=== PATIENT | male | born 1955 | race African-American/Black ===

== ENCOUNTER 2017-03-13 10:29 | Inpatient (IN) | payer OTHER ==
[2017-03-13] MEDS ORDERED: Aspirin Low Dose CHEW TAB* 81 MG PO ONE (10:46)
[2017-03-13] MEDS ORDERED: NS 0.9% 1000 ML* 1,000 ML IV SCH (11:00)
--- NOTE | 2017-03-13 11:05 | RAD ---
HISTORY: Chest pain COMPARISONS: None VIEWS:1: Single frontal portable view of the chest at 10:52 AM FINDINGS: LINES AND TUBES: None. CARDIOMEDIASTINAL SILHOUETTE: The cardiomediastinal silhouette is normal for portable technique. PLEURA: The costophrenic angles are sharp. No pleural abnormalities are noted. LUNG PARENCHYMA: The lungs are clear. ABDOMEN: The upper abdomen is clear. There is no subphrenic gas. BONES AND SOFT TISSUES: No bone or soft tissue abnormalities are noted. IMPRESSION: NO ACTIVE CARDIOPULMONARY DISEASE.
[2017-03-13 11:15] LABS: Hematocrit 42 % (42-52); Hemoglobin 13.4 g/dl (14.0-18.0); Mean Corpuscular HGB Conc 32 g/dl (31-36); Mean Corpuscular Hemoglobin 26 pg (27-31); Mean Corpuscular Volume 83 fL (80-94); Mean Platelet Volume 8 um3 (7.4-10.4); Red Cell Distribution Width 14 % (10.5-15); White Blood Count 6.1 10^3/ul (3.5-10.8)
[2017-03-13 11:32] LABS: Albumin 4.1 g/dL (3.2-5.2); BUN/Creatinine Ratio 10.4 (8-20); C Reactive Protein 20.36 mg/L (< 5.00); Calcium 9.6 mg/dL (8.6-10.3); EGFR African American 103.1 (>60); EGFR Non-African American 80.2 (>60); Globulin 4.2 g/dL (2-4); Potassium 4.3 mmol/L (3.5-5.0); Total Bilirubin 0.5 mg/dL (0.2-1.0); Total Protein 8.3 g/dL (6.4-8.9)
[2017-03-13] MEDS ORDERED: Nitroglycerin TAB 0.4 MG* 0.4 MG TAB SL ONE (11:35)
[2017-03-13 11:38] LABS: Troponin I 0.47 ng/mL (<0.04)
[2017-03-13] MEDS ORDERED: Nitroglycerin TAB 0.4 MG* 0.4 MG TAB ONE (11:54)
[2017-03-13] MEDS ORDERED: Nitroglycerin 2% OINT* 1 GM PAK ONE (11:54)
[2017-03-13] MEDS: Nitroglycerin 2% OINT* 1 GM PAK TOPICAL SCH ×2 (11:56→20:18)
[2017-03-13 11:59] LABS: TSH (Thyroid Stimulating Horm) 1.26 mcIU/mL (0.34-5.60)
[2017-03-13] MEDS ORDERED: Ondansetron INJ* 2 MG/ML VIAL IV PRN (12:10)
[2017-03-13] MEDS ORDERED: Atorvastatin* 80 MG TAB PO SCH (12:11)
[2017-03-13] MEDS ORDERED: Metoprolol Tartrate IV* 1 MG/ML 5 ML VIAL ONE (12:29)
[2017-03-13] MEDS ORDERED: Atorvastatin* 80 MG TAB ONE (12:29)
[2017-03-13] MEDS ORDERED: Heparin DRIP 25,000 UNITS(*) 25,000 UNITS/500 ML BAG ONE (12:30)
[2017-03-13] MEDS ORDERED: Heparin VIAL(*) 5000 UNITS/ML VIAL (FIVE THOUSAND) ONE (12:31)
[2017-03-13] MEDS: Heparin DRIP 25,000 UNITS(*) 25,000 UNITS/500 ML BAG IVPB SCH (12:32)
[2017-03-13] MEDS: Atorvastatin* 80 MG TAB PO ONE ×2 (12:44)
[2017-03-13] MEDS ORDERED: Metoprolol Tartrate IV* 1 MG/ML 5 ML VIAL IV SCH (13:00)
[2017-03-13] MEDS ORDERED: Heparin VIAL(*) 5000 UNITS/ML VIAL (FIVE THOUSAND) IV SCH (13:00)
--- NOTE | 2017-03-13 14:35 | ED ---
Jany Sweet Auryana, scribed for Danny Barber MD on 03/13/17 at 1132 . HPI Chest Pain - HPI Summary HPI Summary: 61 year old male presents with chest pain starting this morning while walking for 3-5 minutes. He reports that the pain was located in the mid sternum and radiated into the left arm with tightness. He reports that it initially started as a burning pain. With exertion, the pain is an 8/10, and is resolved with rest. He reports that he still has tightness in the shoulders and arms (mostly L ) but denies any chest pain now. He denies any edema or calf pain. He reports that he has had one similar episode with activity about 6 weeks ago - states pain radiated to the back , shoulders, and bilateral arms- subsided with rest. No prior stress tests. PMHx is significant for HTN (no medication). No PMHx of abdominal surgeries. - History of Current Complaint Chief Complaint: EDChestPainROMI Time Seen by Provider: 03/13/17 11:25 Hx Obtained From: Patient Onset/Duration: Started Hours Ago - this morning while walking, Resolved - resolved with rest Timing: Lasting Minutes - 3-5 minutes Initial Severity: Mild Current Severity: Mild Pain Intensity: 2 - reports no CP on ED physician visit Pain Scale Used: 0-10 Numeric Chest Pain Location: Diffuse, Mid Sternal Chest Pain Radiates: Yes Chest Pain Radiates To:: Shoulder - tightness, Arm - tightness Character: Pressure/Squeezing, Tightness Aggravating Factor(s): Exertion - brings on pain Alleviating Factor(s): Rest Associated Signs and Symptoms: Positive: Chest Pain - denies any now, Other: - tightness in arms and shoulder Related History: Similar Episode/Dx as: - YES - SEE HPI - Allergy/Home Medications Allergies/Adverse Reactions: Allergies Allergy/AdvReac Type Severity Reaction Status Date / Time Atenolol [From Tenormin] Allergy Bleeding Verified 03/13/17 11:15 PMH/Surg Hx/FS Hx/Imm Hx Cardiovascular History: Reports: Hx Hypertension - untreated GI History: Reports: Hx Gastrointestinal Bleed Infectious Disease History: No Infectious Disease History: Denies: Traveled Outside the [place] in Last 30 Days - Family History Known Family History: Positive: Hypertension, Diabetes - Social History Occupation: Employed Full-time Lives: With Family - SIGNIFICANT OTHER Alcohol Use: history of past ETOH abuse per history & physical in 2006 Hx Substance Use: No Substance Use Type: Reports: None Hx Tobacco Use: No Smoking Status (MU): Never Smoked Tobacco Review of Systems Constitutional: Negative Negative: Fever Eyes: Negative ENT: Negative Cardiovascular: Negative Negative: Chest Pain - none now Respiratory: Negative Gastrointestinal: Negative Genitourinary: Negative Positive: Other - tightness in the shoulers and bilateral arms (L>R). Negative : Edema Skin: Negative Neurological: Negative Psychological: Normal All Other Systems Reviewed And Are Negative: Yes Physical Exam Triage Information Reviewed: Yes Vital Signs On Initial Exam: Initial Vitals Temp Pulse Resp BP Pulse Ox 97.8 F 114 20 180/98 100 03/13/17 10:30 03/13/17 10:30 03/13/17 10:30 03/13/17 10:30 03/13/17 10:30 Vital Signs Reviewed: Yes Appearance: Positive: Well-Appearing, No Pain Distress Skin: Positive: Warm, Skin Color Reflects Adequate Perfusion, Dry Head/Face: Positive: Normal Head/Face Inspection Eyes: Positive: EOMI, ALEX ENT: Positive: Normal ENT inspection Neck: Positive: Supple, Nontender Respiratory/Lung Sounds: Positive: Clear to Auscultation, Breath Sounds Present Cardiovascular: Positive: RRR. Negative: Leg Edema Left, Leg Edema Right Abdomen Description: Positive: Nontender, Soft Bowel Sounds: Positive: Present Musculoskeletal: Positive: Normal, Strength/ROM Intact. Negative: Edema Left, Edema Right Neurological: Positive: Normal, Sensory/Motor Intact, Alert, Oriented to Person Place, Time Psychiatric: Positive: Normal, Affect/Mood Appropriate Diagnostics - Vital Signs Vital Signs Temp Pulse Resp BP Pulse Ox 03/13/17 10:54 94 10 98 03/13/17 10:51 98.4 F 103 19 227/143 100 03/13/17 10:30 97.8 F 114 20 180/98 100 - Laboratory Lab Results: Lab Results 03/13/17 03/13/17 03/13/17 Range/Units 11:05 11:05 11:05 WBC 6.1 (3.5-10.8) 10^3/ul RBC 5.10 (4.0-5.4) 10^6/ul Hgb 13.4 L (14.0-18.0) g/dl Hct 42 (42-52) % MCV 83 (80-94) fL MCH 26 L (27-31) pg MCHC 32 (31-36) g/dl RDW 14 (10.5-15) % Plt Count 265 (150-450) 10^3/ul MPV 8 (7.4-10.4) um3 Neut % (Auto) 50.3 (38-83) % Lymph % (Auto) 38.6 (25-47) % [place] % (Auto) 9.4 H (1-9) % Eos % (Auto) 0.6 (0-6) % Baso % (Auto) 1.1 (0-2) % Absolute Neuts (auto) 3.0 (1.5-7.7) 10^3/ul Absolute Lymphs (auto) 2.3 (1.0-4.8) 10^3/ul Absolute Monos (auto) 0.6 (0-0.8) 10^3/ul Absolute Eos (auto) 0 (0-0.6) 10^3/ul Absolute Basos (auto) 0.1 (0-0.2) 10^3/ul Absolute Nucleated RBC 0.01 10^3/ul Nucleated RBC % 0.2 INR (Anticoag Therapy) 1.02 (0.89-1.11) APTT 30.1 (26.0-36.3) seconds D-Dimer, Quantitative < 200 (Less Than 230) ng/mL Sodium 133 (133-145) mmol/L Potassium 4.3 (3.5-5.0) mmol/L Chloride 100 L (101-111) mmol/L Carbon Dioxide 26 (22-32) mmol/L Anion Gap 7 (2-11) mmol/L BUN 10 (6-24) mg/dL Creatinine 0.96 (0.67-1.17) mg/dL Est GFR ( Amer) 103.1 (>60) Est GFR (Non-Af Amer) 80.2 (>60) BUN/Creatinine Ratio 10.4 (8-20) Glucose 95 (70-100) mg/dL Lactic Acid (0.5-2.0) mmol/L Calcium 9.6 (8.6-10.3) mg/dL Magnesium 2.0 (1.9-2.7) mg/dL Total Bilirubin 0.50 (0.2-1.0) mg/dL AST 18 (13-39) U/L ALT 12 (7-52) U/L Alkaline Phosphatase 95 (34-104) U/L Total Creatine Kinase 98 (10-223) U/L CK-MB (CK-2) 3.1 (0.6-6.3) ng/mL Troponin I 0.47 H* (<0.04) ng/mL C-Reactive Protein 20.36 H (< 5.00) mg/L B-Natriuretic Peptide ( - 100) pg/mL Total Protein 8.3 (6.4-8.9) g/dL Albumin 4.1 (3.2-5.2) g/dL Globulin 4.2 H (2-4) g/dL Albumin/Globulin Ratio 1.0 (1-3) Lipase 13 (11.0-82.0) U/L TSH 1.26 (0.34-5.60) mcIU/mL 03/13/17 03/13/17 Range/Units 11:05 11:05 WBC (3.5-10.8) 10^3/ul RBC (4.0-5.4) 10^6/ul Hgb (14.0-18.0) g/dl Hct (42-52) % MCV (80-94) fL MCH (27-31) pg MCHC (31-36) g/dl RDW (10.5-15) % Plt Count (150-450) 10^3/ul MPV (7.4-10.4) um3 Neut % (Auto) (38-83) % Lymph % (Auto) (25-47) % [place] % (Auto) (1-9) % Eos % (Auto) (0-6) % Baso % (Auto) (0-2) % Absolute Neuts (auto) (1.5-7.7) 10^3/ul Absolute Lymphs (auto) (1.0-4.8) 10^3/ul Absolute Monos (auto) (0-0.8) 10^3/ul Absolute Eos (auto) (0-0.6) 10^3/ul Absolute Basos (auto) (0-0.2) 10^3/ul Absolute Nucleated RBC 10^3/ul Nucleated RBC % INR (Anticoag Therapy) (0.89-1.11) APTT (26.0-36.3) seconds D-Dimer, Quantitative (Less Than 230) ng/mL Sodium (133-145) mmol/L Potassium (3.5-5.0) mmol/L Chloride (101-111) mmol/L Carbon Dioxide (22-32) mmol/L Anion Gap (2-11) mmol/L BUN (6-24) mg/dL Creatinine (0.67-1.17) mg/dL Est GFR ( Amer) (>60) Est GFR (Non-Af Amer) (>60) BUN/Creatinine Ratio (8-20) Glucose (70-100) mg/dL Lactic Acid 1.6 (0.5-2.0) mmol/L Calcium (8.6-10.3) mg/dL Magnesium (1.9-2.7) mg/dL Total Bilirubin (0.2-1.0) mg/dL AST (13-39) U/L ALT (7-52) U/L Alkaline Phosphatase (34-104) U/L Total Creatine Kinase (10-223) U/L CK-MB (CK-2) (0.6-6.3) ng/mL Troponin I (<0.04) ng/mL C-Reactive Protein (< 5.00) mg/L B-Natriuretic Peptide 54 ( - 100) pg/mL Total Protein (6.4-8.9) g/dL Albumin (3.2-5.2) g/dL Globulin (2-4) g/dL Albumin/Globulin Ratio (1-3) Lipase (11.0-82.0) U/L TSH (0.34-5.60) mcIU/mL Result Diagrams: 03/13/17 11:05 03/13/17 11:05 Lab Statement: Any lab studies that have been ordered have been reviewed, and results considered in the medical decision making process. - Radiology CXR Xray Interpretation: No Acute Changes Radiology Interpretation Completed By: Radiologist - EKG 10:44 EKG Interpretation: NSR@96bpm,flipped T (V4,V5,V6);flat T(inferior lead);Q waves (III & aVf) 10:45 EKG Comparison: No Significant Change - from 10:44 EKG Chest Pain Course/Dx - Course Course Of Treatment: CRITICAL CARE TIME LESS THAN 30 MINUTES Assessment/Plan: DISCUSSED RESULTS WITH PATIENT//HOSPITALIST. ADMIT HOSPITALIST STABLE. CARDIOLOGY SAW PATIENT IN ED. - Diagnoses Provider Diagnoses: Chest pain, Elevated troponin, Hypertension - Provider Notifications Discussed Care Of Patient With: Dr. Muñoz Time Discussed With Above Provider: 11:32 - agrees to admit Discharge - Discharge Plan Condition: Stable Disposition: ADMITTED TO Health system documentation as recorded by the Jany jimenez Auryana accurately reflects the service I personally performed and the decisions made by me, Danny Barber MD.
--- NOTE | 2017-03-13 16:21 | ECHO ---
Patient: TEN HINOJOSA [facility] Rec#: [id number] : 1955 Date: 03/13/2017 Age: 61y Height: 182.9 cm / 72.0 in Weight: 127 kg / 279.9 lbs Sex: M BSA: 2.5 Room#: ICU 3 Admit Date#: 03/13/2017 Type: Inpatient Referring: Luis M Mcdonald NP Reading: Wayne Perales MD [employer]: Maggie Tariq RN RDCS Transthoracic Echocardiogram Indication: NSTEMI BP: 151/95 HR: 87 Rhythm: NSR Findings History: HTN, obesity, former smoker Technical Comments: The study is technically limited due to patient body habitus. The study is technically limited due to the patient's smoking history. Completed at 1540. Left Ventricle: The left ventricular chamber size is mildly dilated. There is increased basal septal hypertrophy noted without evidence of an increased gradient across the left ventricular outflow tract. There are multiple regional wall motion abnormalities. There is moderately decreased left ventricular systolic function. The estimated ejection fraction is 30-35%. There is an E to A reversal in the mitral valve flow pattern suggestive of diastolic dysfunction. The mid anteroseptal, mid anterior, apical anterior, and apical inferior wall segments are hypokinetic (score 2). The apical septal wall segment is akinetic (score 3). Overall wallmotion score index is 2.20 Left Atrium: The left atrial chamber size is normal. Right Ventricle: The right ventricular cavity size is normal. The right ventricular global systolic function is normal. Right Atrium: The right atrial cavity size is normal. Aortic Valve: The aortic valve is trileaflet. The aortic valve leaflets are mildly thickened. There is mild aortic regurgitation. There is no evidence of aortic stenosis. Mitral Valve: The mitral valve leaflets are mildly thickened. There is trace to mild mitral regurgitation. There is no evidence of mitral stenosis. Tricuspid Valve: The tricuspid valve leaflets are normal. There is trace to mild tricuspid regurgitation. There is evidence of mild pulmonary hypertension. There is no tricuspid stenosis. Pulmonic Valve: The pulmonic valve appears normal. There is mild pulmonic regurgitation. There is no pulmonic stenosis. Pericardium: There is no significant pericardial effusion. A pericardial fat pad is visualized. Aorta: There is moderate dilatation of the ascending aorta.4.4 cm There is mild dilatation of the aortic arch. There is mild dilatation of the aortic root. Pulmonary Artery: The main pulmonary artery appears normal. Venous: The inferior vena cava appears normal in size. There is a greater than 50% respiratory change in the inferior vena cava dimension. Summary: There was not any prior study for comparison. Conclusions There is moderately decreased left ventricular systolic function. The estimated ejection fraction is 30-35%. The mid anteroseptal, mid anterior, apical anterior, and apical inferior wall segments are hypokinetic (score 2). The apical septal wall segment is akinetic (score 3). The right ventricular global systolic function is normal. The aortic valve leaflets are mildly thickened. There is mild aortic regurgitation. There is no evidence of aortic stenosis. There is trace to mild mitral regurgitation. There is trace to mild tricuspid regurgitation. There is no significant pericardial effusion. There is moderate dilatation of the ascending aorta.4.4 cm There was not any prior study for comparison. Measurements Name Value Normal Range RVIDd (AP) 2D 2.6 cm (0.9 - 2.6) RVDdMajor (2D) 4.1 cm (2.2 - 4.4) RAd ISD 4CH 4.6 cm (3.4 - 4.9) RA (A4C)W 4 cm (2.9 - 4.6) IVSd (2D) 1 cm (0.6 - 1) LVPWd (2D) 1 cm (0.6 - 1) LVIDd (2D) 5.9 cm (3.6 - 5.4) LVIDs (2D) 4.5 cm - LV FS (2D) 23 % (25 - 45) Aortic Annulus 2.9 cm (1.4 - 2.6) Ao root diameter (2D) 3.4 cm (2.1 - 3.5) Ascending Ao 4.4 cm (2.1 - 3.4) Aortic arch 3.6 cm (1.8 - 3.4) LA dimension (AP) 2D 3.7 cm (2.3 - 3.8) LAd ISD 4CH 4.9 cm (2.9 - 5.3) LA ISD 4CH W 4.2 cm (2.5 - 4.5) Name Value Normal Range LA ESV SP 4CH (A/L) 60 ml - LA ESV SP 2CH (A/L) 71 ml - LA ESV BP (A/L) 65 ml - LA ESV BP (A/L) index 26.5 ml/m2 - LA ESV SP 4CH (MOD) 56 ml - LA ESV SP 2CH (MOD) 65 ml - Name Value Normal Range MV E-wave Vmax 0.75 m/sec - MV deceleration time 189 msec - MV A-wave Vmax 0.9 m/sec - MV E:A ratio 0.8 ratio - LV septal e' Vmax 0.09 m/sec - LV lateral e' Vmax 0.07 m/sec - LV E:e' septal ratio 8.3 ratio - LV E:e' lateral ratio 10.7 ratio - Name Value Normal Range AV Vmax 1.6 m/sec - AV VTI 33 cm - AV peak gradient 9.6 mmHg - AV mean gradient 5.8 mmHg - LVOT Vmax 1.1 m/sec - LVOT VTI 21.7 cm - LVOT peak gradient 4.6 mmHg - LVOT mean gradient 2.9 mmHg - ESHA Vmax 0.52 m/sec - Name Value Normal Range TR Vmax 2.9 m/sec - TR peak gradient 34 mmHg - RAP 3 mmHg - RVSP 37 mmHg - IVC diameter 1.5 cm - Name Value Normal Range PV Vmax 0.91 m/sec - Wallmotion BAS Not Seen BA Not Seen BAL Not Seen NICHOLAS Not Seen BI Not Seen BIS Not Seen MAS Hypokinetic MA Hypokinetic MAL Not Seen MIL Not Seen MT Not Seen MIS Not Seen Akinetic AA Hypokinetic AL Not Seen AI Hypokinetic APEX Hypokinetic
[2017-03-13] MEDS ORDERED: diPHENhydraMINE PO* 25 MG PO ONE (16:49)
[2017-03-13] MEDS ORDERED: Diazepam TAB(*) 5 MG PO ONE (16:49)
[2017-03-13 18:43] LABS: Hematocrit 40 % (42-52); Hemoglobin 12.9 g/dl (14.0-18.0); Mean Corpuscular HGB Conc 32 g/dl (31-36); Mean Corpuscular Hemoglobin 26 pg (27-31); Mean Corpuscular Volume 82 fL (80-94); Mean Platelet Volume 8 um3 (7.4-10.4); Red Blood Count 4.94 10^6/ul (4.0-5.4); Red Cell Distribution Width 14 % (10.5-15); White Blood Count 8.2 10^3/ul (3.5-10.8)
[2017-03-13] MEDS: Metoprolol Tartrate TAB* 25 MG PO SCH (20:16)
[2017-03-13] MEDS: Acetaminophen TAB* 325 MG PO PRN (20:16)
[2017-03-13] MEDS: Captopril TAB* 12.5 MG PO SCH (20:16)
[2017-03-13] MEDS ORDERED: Captopril TAB* 12.5 MG PO SCH (21:00)
--- NOTE | 2017-03-13 21:31 | CONS ---
CARDIOLOGY CONSULTATION: DATE OF CONSULT: 03/13/17 INDICATION FOR CONSULTATION: Chest pain, acute coronary syndrome. HISTORY OF PRESENT ILLNESS: The patient is a 61-year-old gentleman who did not seek medical care in the last 10 years who was admitted to the emergency room with chest pain. The patient states that he had a significant episode of chest pain 6 weeks ago. He described it as a crushing chest pain, radiating to both arms that lasted for approximately 3 hours and then resolved on its own. Since then, the patient has been taking an aspirin a day and some other home remedies. Since for the past week or so, he has been getting chest pain with exertion. However, yesterday, he had chest pain with minimal exertion just from walking around his apartment. The patient came into the emergency room this morning at the behest of his for his chest pain. On arrival to the emergency room, the patient was markedly hypertensive with a blood pressure of 280/110. He was given sublingual nitroglycerin and IV Lopressor to lower his blood pressure. The patient's initial troponin level was 0.47. His initial EKG showed normal sinus rhythm with T-wave inversions in V4 through V6. PAST MEDICAL HISTORY: Unremarkable. He did have a lower GI bleed back in 2005 and had a colonoscopy at that time and showed diverticular disease. OUTPATIENT MEDICATIONS: None. ALLERGIES: None. 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 He denies tobacco or alcohol use. REVIEW OF SYSTEMS: Negative for fevers and chills. Negative for changes in bowel or bladder habits. Negative for changes in weight. Again, he has not sought medical care in over 10 years. PHYSICAL EXAMINATION: Height is 6 feet, weight 280 pounds. Blood pressure 166/ 108, heart rate is 96, respiratory rate is 21, oxygen saturation 95% on room air , temperature 97.4. Sclerae anicteric. Oropharynx is pink without erythema. Carotids are 2+ without bruits. JVD is normal. Thyroid is normal. Cardiac Exam: Distant heart sounds. S1, S2 without any obvious murmurs, rubs or gallops. PMI is difficult to assess. Lungs: Clear to auscultation. There is no dullness to percussion. Abdomen: Obese, soft, nontender, nondistended with normoactive bowel sounds. Extremities: Showed no edema. He has 2+ pulses in dorsalis pedis and popliteal. The patient is awake, alert and oriented. He moves all 4 extremities equally. DIAGNOSTIC STUDIES/LAB DATA: CBC within normal limits. Chemistries within normal limits. BUN 10, creatinine 0.96, troponin level 0.47. BNP is 54, TSH 1.26. IMPRESSION: This is a 61-year-old gentleman who does not seek medical care, who has been having typical anginal type symptoms. The patient had a significant episode of chest pain 6 weeks ago that lasted 3 or 4 hours. He did not seek medical care at that time. The patient has been having exertional chest pain for the past week. The patient's troponin level is elevated and his EKG shows T-wave inversions. The patient will be admitted to the intensive care unit. The patient will be started on IV heparin, beta-mari, statin therapy. The patient is recommended to undergo cardiac catheterization. Risks and benefits of this were described in detail. The patient is willing to proceed. Further recommendations pending results of his echocardiogram and cardiac catheterization. [id number]/[facility] #: [id number] MTDD
--- NOTE | 2017-03-13 22:12 | HP ---
ATTENDING PHYSICIAN'S ADDENDUM NOW INCLUDED ON THIS REPORT HISTORY AND PHYSICAL: DATE OF ADMISSION: 03/13/17 PRIMARY CARE PROVIDER: None. ATTENDING PHYSICIAN WHILE IN THE HOSPITAL: Dr. Magui Muñoz * (report dictated by Luis M Mcdonald NP). CONSULTING MEASURER: Dr. Perales. CHIEF COMPLAINT: Chest pain. HISTORY OF PRESENTING ILLNESS: Mr. Molina is a 61-year-old male patient who has a history of hypertension an RACHEL. He has a history of alcohol abuse in the past many years ago. He comes into the ER today stating that 6 weeks ago, he noticed he had an episode of chest tightness associated with nausea, sweating, pain radiating into the jaw, down the arm and the pressure in the chest, it was constant for 2 to 3 days, it went away. He tried taking holistic medications and approach to the discomfort. He thought may be it was something related to his heart. Unfortunately though over the last week, he has had progressive worsening chest pain, particularly with exertion. 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 He has to sit down and that goes away and the pain is in the center of his chest with association of diaphoresis. It does go into his jaw at times and sometimes down his arm. It has been getting progressively worse. He denied having any fever, no chills. He denies having any abdominal pain. There has been no nausea, or any vomiting and he denies having any recent fevers or chills and no travel or leg of calf pain. He came into the ER today, was evaluated. Ultimately, his troponin was elevated at 0.47. He had an EKG changes and we were asked to evaluate for admission. Because of these changes, we were asked to evaluate for admission. PAST MEDICAL HISTORY: Significant for: 1. Hypertension. 2. Questionable RACHEL. 3. Alcohol abuse in the past according to the old records. PAST SURGICAL HISTORY: Denied. HOME MEDICATIONS: Denied. ALLERGIES TO MEDICATIONS: Include ATENOLOL. FAMILY HISTORY: Mother had hypertension, father is diabetic. SOCIAL HISTORY: He is a former smoker about a pack a day for 12 years. He currently does not drink alcohol anymore. He works at [employer]. Surrogate decision maker is his [employer]. REVIEW OF SYSTEMS: There is no documented fever here. He denied having any significant weight change. There was no double vision. He denies having any ear discharge. There was no rhinorrhea. There was no sore throat, no thyroid enlargement. Denies having any chest pain. There was no orthopnea. There was no nocturnal dyspnea. He denies having any abdominal pain. There was no nausea , no vomiting, no dysuria, no frequency. There was chest discomfort from my HPI. Review of 14 systems completed, all others negative. PHYSICAL EXAMINATION GENERAL: At this time, Mr. Molina is a 61-year-old male patient. He is a morbidly obese. He is sitting in the ER stretcher. He does not appear to be in any acute distress. VITAL SIGNS: Reveals blood pressure when he initially came in was 227/143, it is now 186/118, heart rate 90, respirations 18, O2 sat 100%, temperature 98.4. HEENT: Head: Atraumatic and normocephalic. Eyes: EOMs are intact. Sclerae was anicteric not pale. Throat: Oral mucosa appears to be moist. No oropharyngeal erythema. NECK: Supple. LUNGS: Clear to auscultation bilaterally. No wheezes, rales or rhonchi. HEART: Heart sounds S1, S2. Regular rate and rhythm. No murmurs, rubs or gallops. ABDOMEN: Soft, it was flat, nontender. Bowel sounds present. EXTREMITIES: Pulses were 2+ throughout. He is able to move all 4 extremities with 5/5 strength. NEUROLOGIC: The patient is awake. He is alert. He is oriented x3. His tongue is midline. 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 He had no gross focal deficits. SKIN: Intact. DIAGNOSTIC STUDIES/LAB DATA: Labs today revealed WBC of 6.1, RBC of 5.10, hemoglobin of 13.4, hematocrit 42, platelet count 265. The INR was 1.02. PTT at 30.1. D-dimer is less than 200. Sodium was 133, potassium 4.3, chloride 100, bicarb of 26, BUN 10, creatinine 0.96, glucose 95, lactate 1.6, calcium 9.6, mag 2.0, total bili 0.5, AST 18, ALT 12, alk phos 95. CK 3.1, troponin was 0.47. CRP at 20 and TSH at 1.26. Lipase was normal. He had an EKG obtained today, which revealed a sinus rhythm at the rate of 90, T - wave inversions in V4, V5 and V6. No ST elevations. It is reviewed in the previous EKG, I do not have previous EKG for comparison and T-wave inversions are presumably new. He had a chest x-ray obtained today, which revealed no active cardiopulmonary disease. Old medical records were reviewed. ASSESSMENT AND PLAN: Mr. Molina is a 61-year-old male patient coming into the ER today with complaints of chest pain with exertion, now found to have EKG changes and elevated troponin. He will be admitted under inpatient status in ICU for: 1. Non-ST elevation myocardial infarction. At this point again the patient's story is very concerning for acute coronary syndrome. I did touch base with Dr. Perales, who will be evaluating the patient. We will make him n.p.o. His blood pressures need to be better controlled. We did just start nitro paste and we started nitro sublingual. If this does not control him, I probably would put him on a nitro drip. I am going to go obviously give him 5 of IV Lopressor. There is an allergy to ATENOLOL but again there was no hives or any anaphylactic type reactions, so I am going to give it and monitor him. We will give him Lopressor 5 IV every 6 hours and hopefully this will help get the pressure down. If it does not, then I probably would convert him over to nitro drip and perhaps labetalol drip or an esmolol drip and we will continue to aggressively treat that blood pressure in the setting of acute coronary syndrome. He will be placed on heparin. He will be placed on aspirin and we will give him high dose of statin therapy and we will continue to treat this aggressively and again Cardiology will be evaluating and I did put in an echo, we will cycle the troponin. we will get serial EKGs. We will check lipid panel and A1c in the morning. 2. History of obstructive sleep apnea. He needs on the outpatient setting to be setup with CPAP. 3. Hypertension. Again controlling this would be a priority. I would like to get him down to 160 to 170 systolic or actually between the 140 to 160 range. If I need to I will start drips. 4. Deep vein thrombosis prophylaxis. He will be placed on heparin subcu. 5. Fluids, nutrition and electrolytes. He is n.p.o. 6. Code status. Full code. TIME SPENT: Time spent on this admission was approximately 70 minutes, greater than half the time was spent [id number] with the patient, obtaining my history of physical; the other half time was spent going over the plan of care with the patient and implementing plan of care. I did discuss the plan of care with my attending, Dr. Muñoz; she is in agreement. LUIS M MCDONALD NP ADDENDUM: Mr. Molina is a 61-year-old male who presented to the hospital with complaints of 6 weeks of exertional chest pain, his blood pressures were over 200. The patient is going to be treated in the intensive care unit for hypertensive emergency. He also has elevated troponin and most likely exertional angina. For further details of the patient's presentation, please see the history and physical dictated by Luis M Mcdonald on 03/13/17 with which I agree. MAGUI MUÑOZ MD CC: Dr. Perales* [id number]/CPS #: [id number]/CPS #: [id number] MTDRenny
--- NOTE | 2017-03-13 22:20 | HP ---
HISTORY AND PHYSICAL:* DATE OF ADMISSION: ADDENDUM: Mr. Molina is a 61-year-old male who presented to the hospital with complaints of 6 weeks of exertional chest pain, his blood pressures were over 200. The patient is going to be treated in the intensive care unit for hypertensive emergency. He also has elevated troponin and most likely exertional angina. For further details of the patient's presentation, please see the history and physical dictated by Luis M Mcdonald on 03/13/17 with which I agree. [id number]/[facility] #: [id number] MTDD
[2017-03-14] MEDS: Metoprolol Tartrate TAB* 25 MG PO SCH ×3 (01:57→13:13)
[2017-03-14] MEDS: Heparin DRIP 25,000 UNITS(*) 25,000 UNITS/500 ML BAG IVPB SCH (01:57)
[2017-03-14] MEDS: Nitroglycerin 2% OINT* 1 GM PAK TOPICAL SCH ×2 (04:30→13:10)
[2017-03-14 04:58] LABS: Hematocrit 39 % (42-52); Hemoglobin 12.4 g/dl (14.0-18.0); Mean Corpuscular HGB Conc 32 g/dl (31-36); Mean Corpuscular Hemoglobin 26 pg (27-31); Mean Corpuscular Volume 83 fL (80-94); Mean Platelet Volume 8 um3 (7.4-10.4); Red Blood Count 4.74 10^6/ul (4.0-5.4); Red Cell Distribution Width 15 % (10.5-15)
[2017-03-14 05:04] LABS: Calcium 9.2 mg/dL (8.6-10.3); EGFR African American 98.4 (>60); EGFR Non-African American 76.5 (>60); HDL Cholesterol 38.6 mg/dL
[2017-03-14 05:06] LABS: Troponin I 0.46 ng/mL (<0.04)
[2017-03-14] MEDS ORDERED: Heparin 2 UNITS/ML IVPREMIX* 3,000 ML IV ONE (07:10)
[2017-03-14] MEDS ORDERED: fentaNYL* 50 MCG/ML 2 ML VIAL (100 MCG VIAL) ONE (07:10)
[2017-03-14] MEDS ORDERED: Midazolam* 1 MG/ML 5 ML VIAL (5 MG) ONE (07:10)
[2017-03-14] MEDS ORDERED: Lidocaine 1% INJ* 10 MG/ML 30 ML SDV ONE (07:11)
[2017-03-14] MEDS ORDERED: Iohexol 350 (CONTRAST) 200 ML MDV IV ONE (07:11)
[2017-03-14] MEDS ORDERED: Heparin(*) 1000 UNIT/ML 10 ML VIAL CATH LAB IV ONE (07:35)
[2017-03-14] MEDS ORDERED: VERAPAMIL 2.5 MG/ML 4 ML VIAL ONE (07:35)
[2017-03-14] MEDS ORDERED: nitroGLYCERIN DRIP* 250 ML ONE (07:35)
[2017-03-14] MEDS ORDERED: Diazepam TAB(*) 5 MG ONE (07:39)
[2017-03-14] MEDS ORDERED: diPHENhydraMINE PO* 25 MG ONE (07:39)
[2017-03-14] MEDS ORDERED: Aspirin Low Dose CHEW TAB* 81 MG ONE (07:43)
[2017-03-14] MEDS: Captopril TAB* 12.5 MG PO SCH ×2 (07:46→13:13)
[2017-03-14] MEDS ORDERED: Heparin 2 UNITS/ML IVPREMIX* 1,000 ML IV ONE (08:19)
[2017-03-14] MEDS ORDERED: Aspirin Low Dose CHEW TAB* 81 MG PO SCH (09:00)
[2017-03-14] MEDS: NS 0.9% 1000 ML* 1,000 ML IV SCH ×2 (10:45→16:02)
--- NOTE | 2017-03-14 11:38 | CATH ---
DATE OF PROCEDURE: 03/14/2017. INDICATION FOR PROCEDURE: The patient presents with progressive unstable anginal symptoms following a prolonged three day history of chest discomfort six weeks ago with fluctuating ST segment changes in the anterior leads and an abnormal troponin and an echocardiogram demonstrating significant left ventricular systolic function reported by Dr. Wayne Perales who did the consultation on the patient suggesting an ejection fraction of 30 to 35 percent with wall motion abnormalities including the mid anterior septal, mid anterior apical, anterior apical inferior, significant hypokinesis and akinesis of the apical septal area. There was mild aortic regurgitation, trace to mild mitral regurgitation, trace to mild tricuspid regurgitation and moderate dilatation of the ascending aorta at 4.4 cm. PROCEDURE PERFORMED: Coronary arteriography, left heart catheterization, left ventriculography. DESCRIPTION OF PROCEDURE: The patient was interviewed and examined in the Intensive Care Unit the night prior to the procedure where the risks and benefits were explained. He understood them and wished to proceed. He was brought to the cardiovascular laboratory where a formal timeout was performed. Of note, earlier the right radial artery was assess in the Intensive Care Unit under ultrasound to see if it was appropriate size for an attempt as a site for cardiac catheterization. It was found to be acceptable size and as such the right radial artery area was prepped and draped in a sterile fashion as was both groin areas. Under ultrasound guidance, the right radial artery was visualized. The area was anesthetized with 1 percent Lidocaine. The right radial artery was cannulated and a 6 Nam[place]ian Glidesheath was placed. Following this, a 4.5 curved TIG catheter was attempted to be advanced to the ascending aorta. Of note, there was marked tortuosity of the innominate artery into the aorta. There was great difficulty directing the catheter into the ascending aorta and this necessitated using a pigtail catheter with a wire which was able to be directed into the ascending aorta. Following there were multiple attempts made to get the TIG 4.5 curve into even the left coronary artery and this was met with much difficulty. The decision was made to abort this approach given the fact if any intervention was needed, we would not get good enough support as well. That sheath was then placed to a pressure bag to maintain patency. The right groin area was then anesthetized with 1 percent Lidocaine and the right femoral artery was cannulated and a 6 Namibian introducer was placed. Coronary arteriography was performed utilizing a 5 [place]ian 4 Mouna right coronary catheter and a 5 [place]ian 4 Mouna left coronary catheter. Central aorta pressure was recorded using an angled pigtail catheter advanced to the ascending aorta. The catheter was then passed across the aortic valve into the left ventricle where left ventricular pressure was recorded. Left ventriculography was then performed utilizing a total of 30 cc of Omnipaque dye at a rate of 10 cc per second. The catheter was then pulled back across the aortic valve to recheck gradient. At the end of the case after discussion with the patient, as well as with my partner Dr. Vinod Brown, and with the interventionalist Dr. Tono Alvarez from [facility]. The decision was made to transfer the patient. As such, a radial artery band was placed on the right radial artery after the sheath was removed and reverse Barbeau sign was an A to B. The right groin area sheath was removed and hemostasis was obtained with a closure device after an injection was made to assess whether or not it was appropriate for it. A 6/7 Namibian Mynx closure device was deployed with good hemostasis. Of note, the Heparin was stopped at this time in light of the radial artery band in place. The radial artery band will be weaned by standard protocol. The total contrast used was 135 cc of Omnipaque dye. The radiation exposure included 16.2 minutes of fluoro time. The air kerma radiation was 1901 milligray. The DAP radiation was 12,399 microgray per meter square. RESULTS: HEMODYNAMIC DATA: Left heart catheterization - central aortic pressure was recorded at 148/93 with a mean of 118. Left ventricular pressure 150/left ventricular end- diastolic pressure of 19. LEFT VENTRICULOGRAPHY: Performed in the HENDRICKS projection revealed apical akinesis. There was hypokinesis of the inferior wall. The overall ejection fraction was approximately 35 to 40 percent. I did not see significant mitral regurgitation. CORONARY ARTERIOGRAPHY: A. Left coronary artery: 1. Left main - widely patent. 2. Left anterior descending artery - there is diffuse disease seen in the proximal left anterior descending artery with a decrease of luminal reduction noted to be approximately 40 to 45 percent. Just after a mid diagonal branch, there was critical disease in the continuation of the left anterior descending artery with as high as a 90 percent stenosis involving the small diagonal branch. The left anterior descending artery continued to the apical region and mildly onto the distal inferior wall. The mid diagonal branch itself appeared to have a 70 to 75 percent proximal obstruction noted. 3. Circumflex artery - a high first obtuse marginal branch appeared to have a narrowing as much as 65 percent represent in its proximal portion. The mid portion of the vessel appeared to have a 50 percent obstruction. The continuation of the circumflex supplied a moderate sized mid obtuse marginal branch, the proximal portion of the circumflex itself and an area of narrowing of 40 to 45 percent. Past the mid obtuse marginal branch, the circumflex was totally occluded and retrograde filling was seen to a low lying obtuse marginal branch of the circumflex. B. Right coronary artery - a dominant vessel supplying multiple acute marginal branches, a posterior descending artery and one bifurcating posterior left ventricular branch. There was mild mid disease of 30 to 35 percent. A low lying acute marginal branch, which paralleled the PDA and actually supplied a larger territory, including the mid to distal inferior wall, had a significant 80 to 85 percent proximal/ostial stenosis followed by a segment of 45 to 50 percent in its proximal portion. The continuation of the right coronary artery was somewhat small caliber, but no critical disease was seen. OVERALL ASSESSMENT: The patient has moderate left ventricular systolic dysfunction as described above with significant triple vessel disease involving high grade lesions in the mid LAD as well as significant lesions in the proximal portion of a mid diagonal branch. Borderline significant in the proximal portion of the first obtuse marginal branch with a totally occluded circumflex with retrograde filling to a low lying obtuse marginal branch. The right coronary artery has significant disease involving the low lying acute marginal branch which does supply a significant amount of myocardia of mid inferior to distal inferior myocardium. The recommendations were made for bypass surgery. At this point in time, the patient is extremely hesitant about that, but is agreeable for transfer to [facility] to hear the opinions regarding bypass surgery and intervention as he is more strongly in favor of trying to do percutaneous intervention. I did explain to him he should listen carefully for all the opinions and recommendations as given triple vessel disease with left ventricular systolic dysfunction and the degree of this disease probably would recommend bypass surgery. I have personally spoken to Dr. Chu Green, the hospitalist who is taking care of the patient, who will start the process of transfer to [facility]. CC: Dr. Wayne Perales* [id number]/CPS #: [id number] HEALTH SYSTEMRenny
[2017-03-14] MEDS ORDERED: Enoxaparin(*) 150 MG/ML 1 ML SYRINGE SUBCUT SCH (13:00)
[2017-03-14] MEDS: Acetaminophen TAB* 325 MG PO PRN (13:24)
[2017-03-14] MEDS ORDERED: oxyCODONE TAB* 5 MG TAB PO PRN (15:46)
[2017-03-14] MEDS ORDERED: Atorvastatin* 80 MG TAB PO SCH (17:00)
[2017-03-14 18:05] VITALS: BP 133/81
--- NOTE | 2017-03-14 21:27 | TRS ---
TRANSFER SUMMARY: DATE OF ADMISSION: 03/13/17 DATE OF DISCHARGE: 03/14/17 DISPOSITION ON TRANSFER: To [facility]. CONDITION ON TRANSFER: Stable. REASON FOR TRANSFER: Access to high-risk cardiac catheterization and/or cardiothoracic surgery. PRIMARY DIAGNOSIS: Myocardial infarction with 3-vessel coronary artery disease. SECONDARY DIAGNOSES: 1. Hypertensive emergency. 2. Questionable history of obstructive sleep apnea. 3. History of alcohol abuse 4. Diabetes, hemoglobin A1c of 6.5%. PROCEDURES PERFORMED DURING HOSPITAL STAY: Cardiac catheterization performed by Dr. Rudy Ko, . OVERALL ASSESSMENT: Uploaded on transfer to [place] includes moderate left ventricular systolic d ysfunction, EF of 35% to 40%, and significant triple-vessel disease involving high-grade lesions in the mid LAD as well as significant lesions in the proximal portion of a diagonal branch. Borderline significant in the proximal portion of the first obtuse marginal branch with a totally occluded cir cumflex with retrograde filling to a low-lying obtuse marginal branch. The right coronary artery escudero s significant disease involving the low-lying acute marginal branch, which does supply a significant amount of the myocardia of mid inferior to distal inferior myocardium. Transthoracic echocardiogram, conclusion: Estimated EF 30% to 35%. Mid to anteroseptal, mid anteri or, apical anterior, and apical inferior wall segments are hypokinetic. The apical wall segment is akinetic. Right ventricular systolic function is normal. Mild AR, no evidence of , trace to mild MR, trace to mild TR, no significant pericardial effusion. There is moderate dilatation in the asc ending aorta. PERTINENT LABORATORY DATA: Hemoglobin on transfer 12.4, hematocrit 39. Troponin I peaked at 0.51, decreased to 0.46 on the day of discharge. BUN 14, creatinine 1.0. Hemoglobin A1c 6.5. Triglycerid es 103, total cholesterol 197, LDL 138, HDL 38.6. HISTORY OF PRESENT ILLNESS AND HOSPITAL COURSE: This is a 61-year-old man with past medical history as outlined above including hypertension, questionable history of RACHEL, lower GI bleed in 2005 statu s post colonoscopy suspecting diverticular disease, as well as history of alcohol abuse presenting t o the emergency room after experiencing increasing substernal chest pain with exertion, radiating to the jaw and down to the arm. In the emergency room, he was noted with elevated troponin as well as T-wave inversions on EKG. He was admitted to the ICU, started on heparin drip. Blood pressure on presentation was 227, for which he was started on nitroglycerin drip as well to control his blood pr essure. Cardiac catheterization indicated 3-vessel cardiac disease indicated above. Procedure was terminated without intervention. His heparin was discontinued. During the course of the procedure, he was given full-dose Lovenox 140 mg at 1:30 prior to his transfer. His next Lovenox dose should b e at 1:30 a.m. on 03/15/17 or resumption of heparin drip. He was started on captopril as well as me toprolol as well as 1 inch of 2% nitroglycerin paste. With these interventions, nitroglycerin drip was titrated off prior to his transfer with blood pressure in systolics 130s and diastolics 86. After intervention, the patient was averse to cardiothoracic surgery. I discussed at length with chris hood and he would prefer a less invasive intervention. We discussed that if a less invasive interv ention was possible, of course that would be an option; however, it still seemed that he would not w ant cardiothoracic surgery if no less invasive procedure was an option. He was seen in conjunction with his fiancee who is his healthcare proxy. After discussing the risks of averting surgery as wel l as why surgery might be necessary, the patient seemed more amenable to pursuing surgery and receiv ing transfer for evaluation. Plan on receipt of transfer: 1. Please evaluate blood pressure. Resume nitroglycerin drip or other intervention as deemed wilian flores. 2. Please resume heparin products, either Lovenox at 1:30 a.m. on 03/15/16 or heparin drip. 3. Ple ase have evaluated by Cardiology and Cardiothoracic Surgery for potential CABG. Thank you for your assistance in the care of this patient. Please do not hesitate to contact me at our hospital, [phone]. [id number]/[facility] #: [id number]
== END 2017-03-14 18:45 | disposition short-term general hospital (02) | DRG 281 ==
LOC: ED 10:29 → ICU 12:06 → UNDODISIN 03-14 18:45
PROVIDERS: ADMIT Internal Medicine; ATTEND Internal Medicine
PROC: B2151ZZ Fluoroscopy of Left Heart using Low Osmolar Contrast (ICD-10-PCS; 2017-03-14)
PROC: 4A023N7 Measurement of Cardiac Sampling and Pressure, Left Heart, Percutaneous Approach (ICD-10-PCS; 2017-03-14)
PROC: B2111ZZ Fluoroscopy of Multiple Coronary Arteries using Low Osmolar Contrast (ICD-10-PCS; principal; 2017-03-14 07:00)
DX: I21.4 Non-ST elevation (NSTEMI) myocardial infarction (principal); Z68.41 Body mass index [BMI] 40.0-44.9, adult; E11.9 Type 2 diabetes mellitus without complications; E66.01 Morbid (severe) obesity due to excess calories; I10 Essential (primary) hypertension; G47.33 Obstructive sleep apnea (adult) (pediatric); I25.10 Atherosclerotic heart disease of native coronary artery without angina pectoris; I16.0 Hypertensive urgency; I77.810 Thoracic aortic ectasia; I08.3 Combined rheumatic disorders of mitral, aortic and tricuspid valves; I77.1 Stricture of artery; I25.110 Atherosclerotic heart disease of native coronary artery with unstable angina pectoris; Z88.8 Allergy status to other drugs, medicaments and biological substances; Z83.3 Family history of diabetes mellitus; Z82.49 Family history of ischemic heart disease and other diseases of the circulatory system; Z87.891 Personal history of nicotine dependence
CPT/HCPCS: 36415; 71010; 76937; 80048; 80053; 80061; 82550; 82553; 83036; 83605; 83690; 83735; 83880; 84443; 84484; 85025; 85379; 85610; 85730; 86140; 87641; 93005; 93306; 93458; 94760; A9270-GY; C1760; J1644; J1650; J2001; J2250; J2405; J3010

== ENCOUNTER 2019-10-20 08:47 | Inpatient (IN) | payer OTHER ==
[2019-10-20] MEDS ORDERED: NS 0.9% 1000 ML** 1,000 ML IV ONE (09:35)
--- NOTE | 2019-10-20 09:46 | ED ---
HPI Diabetic - HPI Summary HPI Summary: This patient is a 63 year old M presenting to [facility] accompanied by nathaly with a chief complaint of high blood sugar since today 10/20/19. Per [facility], pt has excessive thirst, blurred vision, blood pressure of 144/93, heart rate 98, Fhx diabetes (pts father) . Pt reports dizziness, "parched", faintness, blurred vision, nausea, foot pain, and yellow sputum (off and on) for past couple of weeks. Denies cp, trouble breathing, weakness, fever, vomiting, diarrhea, chills , erythema of eyes, sore throat, SOB, abdominal pain, dysuria, hematuria, myalgia, edema, rash, and any other cold symptoms but has a cough. Denies prior dx of diabetes. Denies current medication consumption and reports last doctor visit was a couple years ago. Pt denies smoking hx and has not consumed alcohol for a while now. Symptoms aggravated by nothing. Symptoms alleviated by nothing. - History Of Current Complaint Chief Complaint: EDDiabeticProb Time Seen by Provider: 10/20/19 09:16 Hx Obtained From: Patient Onset/Duration: Lasting Weeks, Still Present Timing: Constant Aggravating: Nothing Alleviating: Nothing Associated Signs & Symptoms: Cough, Nausea - Allergies/Home Medications Allergies/Adverse Reactions: Allergies Allergy/AdvReac Type Severity Reaction Status Date / Time atenolol Allergy Bleeding Verified 10/20/19 08:59 Home Medications: Home Medications Multivitamins/Minerals TAB* [Theragran/minerals TAB*] 1 tab PO DAILY 10/20/19 [ History Confirmed 10/20/19] PMH/Surg Hx/FS Hx/Imm Hx Cardiovascular History: Reports: Hx Hypertension - untreated GI History: Reports: Hx Gastrointestinal Bleed Sensory History: Reports: Hx Contacts or Glasses Denies: Hx Hearing Aid Opthamlomology History: Reports: Hx Contacts or Glasses - Surgical History Surgery Procedure, Year, and Place: stents in heart Infectious Disease History: No Infectious Disease History: Denies: Traveled Outside the [place] in Last 30 Days - Family History Known Family History: Positive: Hypertension, Diabetes - Social History Alcohol Use: None Hx Substance Use: No Substance Use Type: Reports: None Hx Tobacco Use: No Smoking Status (MU): Never Smoked Tobacco Review of Systems Positive: Other - denies weakness. Negative: Fever, Chills Positive: Blurred Vision. Negative: Erythema Positive: Other - excessive thirst, yellow sputum. Negative: Sore Throat Negative: Chest Pain Positive: Cough, Other - denies trouble breathing. Negative: Shortness Of Breath Positive: Nausea. Negative: Abdominal Pain, Vomiting, Diarrhea Negative: dysuria, hematuria Positive: Other - foot pain. Negative: Myalgia, Edema Negative: Rash Neurological: Other - dizziness, faintness All Other Systems Reviewed And Are Negative: Yes Physical Exam - Summary Physical Exam Summary: Constitutional: Well-developed, Well-nourished, Alert. (-) Distressed Skin: hyperpigmentation in lower extremities HENT: dry mucous membranes Eyes: Conjunctiva normal Neck: Musculoskeletal ROM normal neck. (-) JVD, (-) Stridor, (-) Tracheal deviation Cardio: Rhythm regular, rate normal, Heart sounds normal; Intact distal pulses; The pedal pulses are 2+ and symmetric. Radial pulses are 2+ and symmetric. (-) Murmur Pulmonary/Chest wall: Effort normal. (-) Respiratory distress, (-) Wheezes, (-) Rales Abd: Soft, (-) tenderness, (-) Distension, (-) Guarding, (-) Rebound Musculoskeletal: (-) Edema Lymph: (-) Cervical adenopathy Neuro: Alert, Oriented x3 Psych: Mood and affect Normal Triage Information Reviewed: Yes Vital Signs On Initial Exam: Initial Vitals Temp Pulse Resp BP Pulse Ox 97.2 F 141 20 146/105 100 10/20/19 08:47 10/20/19 08:47 10/20/19 08:47 10/20/19 08:47 10/20/19 08:47 Vital Signs Reviewed: Yes Diagnostics - Vital Signs Vital Signs Temp Pulse Resp BP Pulse Ox 10/20/19 09:05 117 159/113 99 10/20/19 09:04 122 98 10/20/19 08:47 97.2 F 141 20 146/105 100 - Laboratory Result Diagrams: 10/20/19 09:32 10/20/19 09:32 Lab Statement: Any lab studies that have been ordered have been reviewed, and results considered in the medical decision making process. - Radiology Chest X-Ray Radiology Interpretation Completed By: Radiologist Summary of Radiographic Findings: Per radiologist,. HYPOINFLATED LUNGS WITH NO FOCAL AIRSPACE OPACIFICATION. ED physician has reviewed this imaging report. - EKG 0852 Cardiac Rate: NL - 114 BPM Summary of EKG Findings: EKG taken at 0852 reveals sinus tachycardia at 114 BPM and no STEMI. Diabetic Course/Dx - Course Assessment/Plan: This patient is a 63 year old M presenting to [facility] accompanied by nathaly with a chief complaint of high blood sugar since today . Per [facility], pt has excessive thirst, blurred vision, blood pressure of 144/93, heart rate 98, Fhx diabetes (pts father) . Pt reports dizziness, "parched", faintness, blurred vision, nausea, foot pain, and yellow sputum (off and on) for past couple of weeks. Denies cp, trouble breathing, weakness, fever , vomiting, diarrhea, chills, erythema of eyes, sore throat, SOB, abdominal pain, dysuria, hematuria, myalgia, edema, rash, and any other cold symptoms but has a cough. Denies prior dx of diabetes. Physical Exam Findings reveals no abnormalities except for dry mucous membranes, hyperpigmentation in lower extremities. EKG taken at 0852 reveals sinus tachycardia at 114 BPM and no STEMI. CXR reveals HYPOINFLATED LUNGS WITH NO FOCAL AIRSPACE OPACIFICATION. ED physician has reviewed this radiology report and agrees. Test results with no significant abnormalities expect for VBG pCO2 40 L, VBG pO2 21.0 L, VBG pHCO3 19.3 L, VBG o2 saturation 38.7 L, VBG Base Excess -5.2 L, Chloride 91 L, Carbon Dioxide 20 L, Anion Gap 24 H, Creatinine 1.38 H, Glucose 410 H, Alkaline Phosphatase 111 H, C-Reactive Protein 44.21 H, Globulin 4.7 H, Albumin/Globulin Ratio 0.9 L, Urine Ketones 2+ A, Urine Glucose 3+ (>=500 mg/dl) A. In the ED course the patient was given Insulin Human Regular 5.897 mls/hr IV, saline,. We discussed patient care with Dr. Morton who accepts pt for admission and Dr. De La Paz in the ICU. Patient will be admitted with dx of diabetic ketoacidosis. The patient is agreeable with this plan. - Diagnoses Provider Diagnoses: Diabetic ketoacidosis - Physician Notifications Discussed Care Of Patient With: Marisol Morton Time Discussed With Above Provider: 10:20 Instructed by Provider To: Other - Dr. Morton- accepts for admission; Dr. De La Paz (ICU)- [id number] - Critical Care Time Critical Care Time: 30-74 min - 45 minutes Discharge ED - Sign-Out/Discharge Documenting (check all that apply): Patient Departure - admitted - Discharge Plan Disposition: ADMITTED TO [facility] - Attestation Statements Document Initiated by Scribe: Yes Documenting Scribe: Rosemarie Conner Provider For Whom Scribe is Documenting (Include Credential): Dr. Harrison Lyn MD Scribe Attestation: Rosemarie Sweet, scribed for Dr. Harrison Lyn MD on 10/20/19 at 1242. Status of Scribe Document: Ready
[2019-10-20 09:47] LABS: ABS Lymphocytes 1.6 10^3/ul (1.0-4.8); ABS Monocytes 0.8 10^3/ul (0-0.8); ABS Neutrophils 4.3 10^3/ul (1.5-7.7); Eosinophil % 0.1 %; Hematocrit 43 % (42-52); Hemoglobin 14.1 g/dL (14.0-18.0); Lymphocyte % 23.9 %; Mean Corpuscular HGB Conc 33 g/dL (31-36); Mean Corpuscular Hemoglobin 28 pg (27-31); Mean Corpuscular Volume 83 fL (80-94); Mean Platelet Volume 9.9 fL (7.4-10.4); Platelet Count 194 10^3/uL (150-450); Red Blood Count 5.12 10^6 /uL (4.18-5.48); Red Cell Distribution Width 14 % (10-15); White Blood Count 6.7 10^3/uL (3.5-10.8)
[2019-10-20 09:49] LABS: INR 1.07 (0.82-1.09)
[2019-10-20 10:03] LABS: Troponin I 0.02 ng/mL (<0.03)
[2019-10-20 10:04] LABS: Albumin 4.1 g/dL (3.2-5.2); Albumin/Globulin Ratio 0.9 (1-3); BUN/Creatinine Ratio 10.9 (8-20); C Reactive Protein 44.21 mg/L (<8.01); EGFR African American 63.4 (>60); EGFR Non-African American 52.4 (>60); Globulin 4.7 g/dL (2-4); Total Bilirubin 0.6 mg/dL (0.2-1.0); Total Protein 8.8 g/dL (6.4-8.9)
[2019-10-20] MEDS ORDERED: NS 0.9% 1000 ML** 2,000 ML IV ONE (10:15)
[2019-10-20] MEDS ORDERED: NS 0.9% w/ 40 Meq KCL 1000 ML* 1,000 ML IV SCH ×2 (11:00→16:25)
[2019-10-20] MEDS ORDERED: Insulin Infusion 100unit/100mL 100 UNITS/100 ML UNIT IV SCH (11:00)
--- NOTE | 2019-10-20 11:39 | HP ---
ADMISSION HISTORY AND PHYSICAL: DATE OF ADMISSION: 10/20/19 REASON FOR ADMISSION: Diabetic ketoacidosis. HISTORY OF PRESENT ILLNESS: This is a 63-year-old male without a prior history of diabetes who presented to the emergency department today with a 1- to 2-week history of progressive lethargy associated with increasing thirst and increasing nocturia. In the emergency department, the patient's blood sugar was 410 with an anion gap of 24 with a bicarb of 20 - the ABGs showed a pH of 7.32 and pCO2 of 40. The patient was alert and oriented, with no complaints of chest or abdominal pain, or SOB. EKG showed no evidence of a cardiac ischemia. PAST MEDICAL HISTORY: The patient received 2 coronary stents approximately 5 years ago (at [facility]) and is not currently taking anything to maintain stent patency. He claims a past history of hypertension but claims it "went away" and BP has daron normal. OUTPATIENT MEDICATIONS: Multivitamins. FAMILY HISTORY: The patient has a strong family history of diabetes including parents and siblings. SOCIAL HISTORY: The patient lives with his fiancee and works at [employer] in the "[employer]" department. There is no history of smoking or recent (4 month) history of alcohol ingestion or illicit drug use. REVIEW OF SYSTEMS: Noncontributory. PHYSICAL EXAMINATION GENERAL: The patient is alert, oriented, and comfortable. VITAL SIGNS: Temp was 97.2, heart rate 102 and regular, respirations 18 and nonlabored, O2 sat 98% on room air, blood pressure was 146/105 on admission, and did increase to 160/113 at one point. HEENT: Pupils were equal and briskly reactive. There was no facial asymmetry and no odor on the breath. NECK: Supple. LUNGS: Clear to auscultation. CARDIAC: Exam revealed a regular rhythm without murmurs or rubs. ABDOMEN: Soft, nontender, and nondistended. EXTREMITIES: Warm. Not edematous and not cyanotic. NEUROLOGIC: Exam was grossly normal and there were no focal deficits noted. DIAGNOSTIC STUDIES/LAB DATA: Admission laboratory data: Significant labs included a normal white count (6.7). Sodium of 135, carbon dioxide of 20, anion gap 24, BUN 15, creatinine 1.38, glucose 410, C-reactive protein 44.2, lactate 1.5. Albumin was normal. EKG revealed sinus tachycardia without acute ST- or T-wave changes. IMPRESSION: New-onset diabetes with hyperglycemia and probable ketosis (by the anion gap), but has not progressed to frida ketoacidosis. The patient also likely has hypertension. History of coronary artery disease, but it does not appear to be active at this time. There is nothing to indicate and active infection. MANAGEMENT PLAN: We will use an insulin infusion until the ketosis clears (i.e. , the anion gap normalizes) and then start on a sliding scale insulin regimen. There is no need for antibiotics at this time. I have spoken to the patient about the diagnosis of diabetes and the need for education, which we will begin in the hospital. CRITICAL CARE TIME: 45 minutes. [id number]/CPS #: [id number] CHERYL
[2019-10-20 11:40] LABS: Urine Appearance Clear; Urine Bilirubin Negative (Negative); Urine Blood Negative (Negative); Urine Color Yellow; Urine Glucose 3+(>=500 mg/dL) (Negative); Urine Ketones 2+ (Negative); Urine Nitrite Negative (Negative); Urine Protein Negative (Negative); Urine Specific Gravity 1.029 (1.010-1.030); Urine Urobilinogen Negative (Negative)
[2019-10-20 13:29] LABS: BUN/Creatinine Ratio 10.3 (8-20); EGFR African American 76.7 (>60); EGFR Non-African American 63.4 (>60); Potassium 3.6 mmol/L (3.5-5.0)
[2019-10-20 15:50] LABS: Calcium 8.6 mg/dL (8.6-10.3); Potassium 3.9 mmol/L (3.5-5.0)
[2019-10-20 15:56] LABS: BUN/Creatinine Ratio 10.4 (8-20); EGFR African American 85.9 (>60)
[2019-10-20] MEDS: Insulin LISPRO* 1 UNITS UNIT SUBCUT SCH ×2 (18:13→22:18)
[2019-10-20] MEDS: Heparin VIAL(*) 5000 UNITS/ML VIAL (FIVE THOUSAND) SUBCUT SCH (20:26)
[2019-10-20 22:03] LABS: BUN/Creatinine Ratio 10.5 (8-20); EGFR African American 86.9 (>60); EGFR Non-African American 71.8 (>60); Potassium 4.3 mmol/L (3.5-5.0)
[2019-10-21 05:39] LABS: Hematocrit 27 % (42-52); Hemoglobin 8.9 g/dL (14.0-18.0); Mean Corpuscular HGB Conc 33 g/dL (31-36); Mean Corpuscular Hemoglobin 28 pg (27-31); Mean Corpuscular Volume 84 fL (80-94); Mean Platelet Volume 9.7 fL (7.4-10.4); Platelet Count 109 10^3/uL (150-450); Red Blood Count 3.18 10^6 /uL (4.18-5.48); Red Cell Distribution Width 14 % (10-15); White Blood Count 4.7 10^3/uL (3.5-10.8)
[2019-10-21 06:43] LABS: Albumin 2.9 g/dL (3.2-5.2); Calcium 8.2 mg/dL (8.6-10.3); Potassium 3.8 mmol/L (3.5-5.0); Total Bilirubin 0.3 mg/dL (0.2-1.0)
[2019-10-21 06:49] LABS: Albumin/Globulin Ratio 0.9 (1-3); BUN/Creatinine Ratio 10.5 (8-20); EGFR African American 97.5 (>60); EGFR Non-African American 80.6 (>60); Globulin 3.2 g/dL (2-4); Total Protein 6.1 g/dL (6.4-8.9)
[2019-10-21] MEDS ORDERED: Insulin GLARGINE(*) 1 UNITS UNIT ONE (08:21)
[2019-10-21] MEDS: Insulin LISPRO* 1 UNITS UNIT SUBCUT SCH (08:26)
[2019-10-21] MEDS: Insulin GLARGINE(*) 1 UNITS UNIT SUBCUT SCH ×2 (08:27→20:52)
[2019-10-21] MEDS: Heparin VIAL(*) 5000 UNITS/ML VIAL (FIVE THOUSAND) SUBCUT SCH ×2 (08:27→20:52)
[2019-10-21] MEDS ORDERED: Insulin LISPRO* 1 UNITS UNIT SUBCUT SCH ×2 (12:00→21:00)
[2019-10-21 12:32] LABS: BUN/Creatinine Ratio 9.3 (8-20); Blood Urea Nitrogen 10 mg/dL (6-24); CO2 Carbon Dioxide 19 mmol/L (22-32); Calcium 9.2 mg/dL (8.6-10.3); Chloride 97 mmol/L (101-111); EGFR African American 84.1 (>60); EGFR Non-African American 69.5 (>60); Glucose 371 mg/dL (70-100); Sodium 130 mmol/L (135-145)
[2019-10-21] MEDS: Insulin Infusion 100unit/100mL 100 UNITS/100 ML UNIT IV SCH (12:53)
[2019-10-21 13:15] LABS: Anion Gap 14 mmol/L (2-11)
--- NOTE | 2019-10-21 15:04 | PN ---
Date of Service: 10/21/19 Critical Care Services: Blood glucose back up into mid-300s this AM - AG continues at 16 - therefore restarted the insulin drip at 0.05 units/kg/hr. Vital Signs: Temp Pulse Resp BP SpO2 FiO2 98.4 F 91 27 160/95 100 Physical Exam: Gen: Resting comfortably in bed. HEENT: Normal Lungs: Clear Cardiac: Reg rhythm Abdomen: Not distended Extremities: No cyanosis or edema Fluid Balance (Past 24 Hours): 10/21/19 10/22/19 06:59 06:59 Intake Total 5306 998.3 Output Total 2300 1450 Balance 3006 -451.7 Weight 267 lb 3.2 oz Intake: IV Fluids 5004 378 D5W NS 40 meq KCL 1004 378 NS 1000 Medicated IV 12 20.3 INSULIN 12 20.3 Oral 290 600 Output: Urine 2300 1450 Labs: Laboratory Results - last 24 hr 10/20/19 10/20/19 10/20/19 14:05 15:03 15:06 WBC RBC Hgb Hct MCV MCH MCHC RDW Plt Count MPV Sodium 139 Potassium 3.9 Chloride 103 Carbon Dioxide 20 L Anion Gap 16 H BUN 11 Creatinine 1.06 Est GFR ( Amer) 85.9 Est GFR (Non-Af Amer) 71.0 BUN/Creatinine Ratio 10.4 Glucose 172 H POC Glucose (mg/dL) 169 H 160 H Calcium 8.6 Total Bilirubin AST ALT Alkaline Phosphatase Total Protein Albumin Globulin Albumin/Globulin Ratio 10/20/19 10/20/19 10/20/19 16:15 18:01 21:25 WBC RBC Hgb Hct MCV MCH MCHC RDW Plt Count MPV Sodium 132 L Potassium 4.3 Chloride 98 L Carbon Dioxide 18 L Anion Gap 16 H BUN 11 Creatinine 1.05 Est GFR ( Amer) 86.9 Est GFR (Non-Af Amer) 71.8 BUN/Creatinine Ratio 10.5 Glucose 356 H POC Glucose (mg/dL) 152 H 153 H Calcium 9.0 Total Bilirubin AST ALT Alkaline Phosphatase Total Protein Albumin Globulin Albumin/Globulin Ratio 10/21/19 10/21/19 10/21/19 05:12 05:12 08:13 WBC 4.7 RBC 3.18 L Hgb 8.9 L Hct 27 L MCV 84 MCH 28 MCHC 33 RDW 14 Plt Count 109 L MPV 9.7 Sodium 132 L Potassium 3.8 Chloride 101 Carbon Dioxide 15 L Anion Gap 16 H BUN 10 Creatinine 0.95 Est GFR ( Amer) 97.5 Est GFR (Non-Af Amer) 80.6 BUN/Creatinine Ratio 10.5 Glucose 300 H POC Glucose (mg/dL) 289 H Calcium 8.2 L Total Bilirubin 0.30 AST 13 ALT 7 Alkaline Phosphatase 79 Total Protein 6.1 L Albumin 2.9 L Globulin 3.2 Albumin/Globulin Ratio 0.9 L 10/21/19 10/21/19 10/21/19 12:02 12:07 14:01 WBC RBC Hgb Hct MCV MCH MCHC RDW Plt Count MPV Sodium 130 L Potassium TNP Chloride 97 L Carbon Dioxide 19 L Anion Gap 14 H BUN 10 Creatinine 1.08 Est GFR ( Amer) 84.1 Est GFR (Non-Af Amer) 69.5 BUN/Creatinine Ratio 9.3 Glucose 371 H POC Glucose (mg/dL) 385 H 342 H Calcium 9.2 Total Bilirubin AST ALT Alkaline Phosphatase Total Protein Albumin Globulin Albumin/Globulin Ratio Studies: None today Nutrition: NPO while on the insulin drip. Impression: Probable continuing ketosis without acidemia Plan: Insulin drip until AG normalized, then start sliding scale coverage with lantus background.
[2019-10-21 16:00] LABS: CO2 Carbon Dioxide 18 mmol/L (22-32); Calcium 9.1 mg/dL (8.6-10.3); Chloride 99 mmol/L (101-111); Sodium 131 mmol/L (135-145)
[2019-10-21 16:03] LABS: Anion Gap 14 mmol/L (2-11)
[2019-10-21 16:06] LABS: Blood Urea Nitrogen 10 mg/dL (6-24); EGFR African American 91.9 (>60); Glucose 260 mg/dL (70-100)
[2019-10-21] MEDS ORDERED: D5NS 0.9% 1000 ML BAG* 1,000 ML IV SCH (16:15)
[2019-10-21 17:40] LABS: BUN/Creatinine Ratio 10.3 (8-20); Calcium 9.1 mg/dL (8.6-10.3); EGFR African American 95.2 (>60); EGFR Non-African American 78.7 (>60)
[2019-10-21 18:03] LABS: Potassium 3.9 mmol/L (3.5-5.0)
[2019-10-21] MEDS: NS 0.9% 1000 ML** 1,000 ML IV SCH (18:37)
[2019-10-22] MEDS: Insulin LISPRO* 1 UNITS UNIT SUBCUT SCH ×4 (00:26→20:30)
[2019-10-22] MEDS: NS 0.9% 1000 ML** 1,000 ML IV SCH (04:10)
[2019-10-22 05:23] LABS: ABS Eosinophils 0.1 10^3/ul (0-0.6); ABS Lymphocytes 2.3 10^3/ul (1.0-4.8); ABS Monocytes 0.7 10^3/ul (0-0.8); ABS Neutrophils 2.2 10^3/ul (1.5-7.7); Eosinophil % 1.4 %; Hematocrit 35 % (42-52); Hemoglobin 11.7 g/dL (14.0-18.0); Lymphocyte % 43.3 %; Mean Corpuscular HGB Conc 33 g/dL (31-36); Mean Corpuscular Hemoglobin 28 pg (27-31); Mean Corpuscular Volume 84 fL (80-94); Mean Platelet Volume 9.6 fL (7.4-10.4); Nucleated Red Blood Cells % 0.1; Platelet Count 135 10^3/uL (150-450); Red Cell Distribution Width 14 % (10-15); White Blood Count 5.4 10^3/uL (3.5-10.8)
[2019-10-22 05:43] LABS: BUN/Creatinine Ratio 11.2 (8-20); Calcium 8.7 mg/dL (8.6-10.3); EGFR African American 94.1 (>60); EGFR Non-African American 77.8 (>60)
[2019-10-22 05:55] LABS: Potassium 3.9 mmol/L (3.5-5.0)
[2019-10-22] MEDS: Insulin Infusion 100unit/100mL 100 UNITS/100 ML UNIT IV SCH (06:37)
[2019-10-22] MEDS ORDERED: Insulin Infusion 100unit/100mL 100 UNITS/100 ML UNIT IV SCH (07:00)
[2019-10-22] MEDS ORDERED: D5NS 0.9% 1000 ML BAG* 1,000 ML IV SCH ×2 (07:00→09:23)
[2019-10-22] MEDS: Heparin VIAL(*) 5000 UNITS/ML VIAL (FIVE THOUSAND) SUBCUT SCH ×2 (10:00→21:42)
--- NOTE | 2019-10-22 10:02 | PN ---
Date of Service: 10/22/19 Critical Care Services: Back on insulin drip after anion gap and blood glucose increased on sliding scale insulin. Hb A1c is 18%. Vital Signs: Temp Pulse Resp BP SpO2 FiO2 98.9 F 106 20 134/91 96 Physical Exam: Gen: Alert, oriented, comfortable HEENT: No facial asymmetry Lungs:Clear Cardiac: No murmurs. Rhythm regular Abdomen: Not distended Extremities: No cyanosis or edema Fluid Balance (Past 24 Hours): 10/21/19 10/22/19 06:59 06:59 Intake Total 5306 2439.3 Output Total 2300 2200 Balance 3006 239.3 Weight 267 lb 3.2 oz 275 lb 9.245 oz Intake: IV Fluids 5004 1784 D5W NS 40 meq KCL 1004 378 NS 1000 1406 Medicated IV 12 55.3 INSULIN 12 55.3 Oral 290 600 Output: Urine 2300 2200 Labs: Laboratory Results - last 24 hr 10/21/19 10/21/19 10/21/19 12:02 12:07 14:01 WBC RBC Hgb Hct MCV MCH MCHC RDW Plt Count MPV Neut % (Auto) Lymph % (Auto) Webster % (Auto) Eos % (Auto) Baso % (Auto) Absolute Neuts (auto) Absolute Lymphs (auto) Absolute Monos (auto) Absolute Eos (auto) Absolute Basos (auto) Absolute Nucleated RBC Nucleated RBC % Sodium 130 L Potassium TNP Chloride 97 L Carbon Dioxide 19 L Anion Gap 14 H BUN 10 Creatinine 1.08 Est GFR ( Amer) 84.1 Est GFR (Non-Af Amer) 69.5 BUN/Creatinine Ratio 9.3 Glucose 371 H POC Glucose (mg/dL) 385 H 342 H Hemoglobin A1c Calcium 9.2 10/21/19 10/21/19 10/21/19 15:01 15:01 15:06 WBC RBC Hgb Hct MCV MCH MCHC RDW Plt Count MPV Neut % (Auto) Lymph % (Auto) Webster % (Auto) Eos % (Auto) Baso % (Auto) Absolute Neuts (auto) Absolute Lymphs (auto) Absolute Monos (auto) Absolute Eos (auto) Absolute Basos (auto) Absolute Nucleated RBC Nucleated RBC % Sodium 131 L Potassium TNP Chloride 99 L Carbon Dioxide 18 L Anion Gap 14 H BUN 10 Creatinine 1.00 Est GFR ( Amer) 91.9 Est GFR (Non-Af Amer) 76.0 BUN/Creatinine Ratio 10.0 Glucose 260 H POC Glucose (mg/dL) 250 H Hemoglobin A1c 18.0 H Calcium 9.1 10/21/19 10/21/19 10/21/19 16:01 16:22 17:09 WBC RBC Hgb Hct MCV MCH MCHC RDW Plt Count MPV Neut % (Auto) Lymph % (Auto) Webster % (Auto) Eos % (Auto) Baso % (Auto) Absolute Neuts (auto) Absolute Lymphs (auto) Absolute Monos (auto) Absolute Eos (auto) Absolute Basos (auto) Absolute Nucleated RBC Nucleated RBC % Sodium 133 L Potassium 4.3 3.9 Chloride 101 Carbon Dioxide 21 L Anion Gap 11 BUN 10 Creatinine 0.97 Est GFR ( Amer) 95.2 Est GFR (Non-Af Amer) 78.7 BUN/Creatinine Ratio 10.3 Glucose 157 H POC Glucose (mg/dL) 205 H Hemoglobin A1c Calcium 9.1 10/21/19 10/21/19 10/21/19 17:09 18:06 20:07 WBC RBC Hgb Hct MCV MCH MCHC RDW Plt Count MPV Neut % (Auto) Lymph % (Auto) Webster % (Auto) Eos % (Auto) Baso % (Auto) Absolute Neuts (auto) Absolute Lymphs (auto) Absolute Monos (auto) Absolute Eos (auto) Absolute Basos (auto) Absolute Nucleated RBC Nucleated RBC % Sodium Potassium Chloride Carbon Dioxide Anion Gap BUN Creatinine Est GFR ( Amer) Est GFR (Non-Af Amer) BUN/Creatinine Ratio Glucose POC Glucose (mg/dL) 150 H 115 H 129 H Hemoglobin A1c Calcium 10/22/19 10/22/19 10/22/19 00:20 04:36 05:13 WBC 5.4 RBC 4.20 Hgb 11.7 L Hct 35 L MCV 84 MCH 28 MCHC 33 RDW 14 Plt Count 135 L MPV 9.6 Neut % (Auto) 41.9 Lymph % (Auto) 43.3 Webster % (Auto) 12.7 Eos % (Auto) 1.4 Baso % (Auto) 0.7 Absolute Neuts (auto) 2.2 Absolute Lymphs (auto) 2.3 Absolute Monos (auto) 0.7 Absolute Eos (auto) 0.1 Absolute Basos (auto) 0.0 Absolute Nucleated RBC 0.0 Nucleated RBC % 0.1 Sodium Potassium Chloride Carbon Dioxide Anion Gap BUN Creatinine Est GFR ( Amer) Est GFR (Non-Af Amer) BUN/Creatinine Ratio Glucose POC Glucose (mg/dL) 193 H 261 H Hemoglobin A1c Calcium 10/22/19 10/22/19 10/22/19 05:13 07:38 08:18 WBC RBC Hgb Hct MCV MCH MCHC RDW Plt Count MPV Neut % (Auto) Lymph % (Auto) Webster % (Auto) Eos % (Auto) Baso % (Auto) Absolute Neuts (auto) Absolute Lymphs (auto) Absolute Monos (auto) Absolute Eos (auto) Absolute Basos (auto) Absolute Nucleated RBC Nucleated RBC % Sodium 131 L Potassium 3.9 Chloride 97 L Carbon Dioxide 19 L Anion Gap 15 H BUN 11 Creatinine 0.98 Est GFR ( Amer) 94.1 Est GFR (Non-Af Amer) 77.8 BUN/Creatinine Ratio 11.2 Glucose 242 H POC Glucose (mg/dL) 211 H 234 H Hemoglobin A1c Calcium 8.7 Studies: None today Nutrition: patient is NPO while on an insulin drip Impression: Ketosis still not entirely cleared, requiring repeated infusions of insulin. Hemoglobin A1c level of 18% indicates very poor glycemic control for a prolonged period of time prior to admission. Low albumin (2.9 mg/dL) will also spuriously decrease the anion gap, so we must also take this into consideration (and use a lower anion gap as a target of the insulin infusion).. Plan: Continue insulin infusion until anion gap down to about 9 mEq/L. Keep the patient NPO for now - will refeed when insulin infusion is off. Critical Care Time: 30 minutes
[2019-10-22 10:03] LABS: BUN/Creatinine Ratio 8.9 (8-20); Calcium 8.8 mg/dL (8.6-10.3); EGFR African American 103.8 (>60); EGFR Non-African American 85.8 (>60); Potassium 3.4 mmol/L (3.5-5.0)
[2019-10-22 14:07] LABS: BUN/Creatinine Ratio 8.1 (8-20); Calcium 8.8 mg/dL (8.6-10.3); EGFR African American 109.4 (>60); EGFR Non-African American 90.4 (>60); Potassium 3.6 mmol/L (3.5-5.0)
[2019-10-22] MEDS ORDERED: Insulin GLARGINE(*) 1 UNITS UNIT ONE (14:14)
[2019-10-22] MEDS ORDERED: Dextrose 50% VIAL 50 ml IV PUSH PRN (14:39)
[2019-10-22 18:15] LABS: BUN/Creatinine Ratio 7.1 (8-20); Blood Urea Nitrogen 7 mg/dL (6-24); CO2 Carbon Dioxide 22 mmol/L (22-32); Calcium 9.1 mg/dL (8.6-10.3); Chloride 99 mmol/L (101-111); EGFR Non-African American 76.9 (>60); Glucose 177 mg/dL (70-100); Sodium 133 mmol/L (135-145)
[2019-10-22 18:42] LABS: Anion Gap 12 mmol/L (2-11)
[2019-10-22] MEDS ORDERED: NS 0.9% 1000 ML** 1,000 ML IV SCH (20:00)
[2019-10-22] MEDS: Magnesium Hydroxide LIQ* 30 ML UDC PO PRN (21:42)
[2019-10-23 00:05] LABS: BUN/Creatinine Ratio 8.9 (8-20); Calcium 7.6 mg/dL (8.6-10.3); EGFR African American 120.7 (>60); EGFR Non-African American 99.7 (>60); Magnesium 1.6 mg/dL (1.9-2.7); Phosphorus 3.1 mg/dL (2.5-5.0); Potassium 3.1 mmol/L (3.5-5.0)
[2019-10-23] MEDS ORDERED: Magnesium Sulfate 2 GM IV* 2 GM/50 ML BAG IVPB ONE (00:28)
[2019-10-23] MEDS: Insulin LISPRO* 1 UNITS UNIT SUBCUT SCH ×10 (00:31→21:38)
[2019-10-23] MEDS ORDERED: NS 0.9% w/ 20 Meq KCL 1000 ML* 1,000 ML IV SCH ×2 (01:00→06:11)
[2019-10-23 06:01] LABS: BUN/Creatinine Ratio 7.5 (8-20); Calcium 8.3 mg/dL (8.6-10.3); EGFR African American 118.9 (>60); EGFR Non-African American 98.3 (>60); Magnesium 2.1 mg/dL (1.9-2.7); Potassium 3.5 mmol/L (3.5-5.0)
[2019-10-23] MEDS: Magnesium Hydroxide LIQ* 30 ML UDC PO PRN ×2 (06:03→13:52)
[2019-10-23] MEDS ORDERED: Dextrose 50% VIAL 50 ml IV PUSH PRN (08:50)
[2019-10-23] MEDS: Insulin GLARGINE(*) 1 UNITS UNIT SUBCUT SCH (09:35)
[2019-10-23] MEDS: Heparin VIAL(*) 5000 UNITS/ML VIAL (FIVE THOUSAND) SUBCUT SCH ×2 (09:37→21:39)
--- NOTE | 2019-10-23 09:37 | PN ---
Date of Service: 10/23/19 Critical Care Services: Doing better - AG has decreased to 10-11 and tolerating oral diet. Seen by Dr Rosario this AM. Vital Signs: Temp Pulse Resp BP SpO2 FiO2 98.6 F 96 13 156/86 95 Physical Exam: Gen: Alert, oriented HEENT: No change Lungs: Clear Cardiac: reg rhythm Abdomen: Not distended Extremities: No cyanosis or edema Fluid Balance (Past 24 Hours): I= O= Net Intake & Output 10/22/19 10/23/19 06:59 06:59 Intake Total 2439.3 3315 Output Total 2200 4670 Balance 239.3 -1355 Weight 275 lb 9.245 oz 274 lb 9 oz Intake: IV Fluids 1784 2916 D5W NS (0.9%) 1451 D5W NS 40 meq KCL 378 NS 1406 762 NS (0.9%) 20 meq KCL 703 IVPB 55 Magnesium 55 Medicated IV 55.3 44 INSULIN 55.3 44 Oral 600 300 Output: Urine 2200 4670 Labs: Laboratory Results - last 24 hr 10/22/19 10/22/19 10/22/19 09:20 09:32 10:13 Sodium 132 L Potassium 3.4 L Chloride 99 L Carbon Dioxide 22 Anion Gap 11 BUN 8 Creatinine 0.90 Est GFR ( Amer) 103.8 Est GFR (Non-Af Amer) 85.8 BUN/Creatinine Ratio 8.9 Glucose 208 H POC Glucose (mg/dL) 196 H 192 H Calcium 8.8 Phosphorus Magnesium 10/22/19 10/22/19 10/22/19 11:18 11:59 13:00 Sodium 134 L Potassium 3.6 Chloride 100 L Carbon Dioxide 25 Anion Gap 9 BUN 7 Creatinine 0.86 Est GFR ( Amer) 109.4 Est GFR (Non-Af Amer) 90.4 BUN/Creatinine Ratio 8.1 Glucose 168 H POC Glucose (mg/dL) 203 H 171 H Calcium 8.8 Phosphorus Magnesium 10/22/19 10/22/19 10/22/19 13:04 15:04 17:45 Sodium 133 L Potassium TNP Chloride 99 L Carbon Dioxide 22 Anion Gap 12 H BUN 7 Creatinine 0.99 Est GFR ( Amer) 93.0 Est GFR (Non-Af Amer) 76.9 BUN/Creatinine Ratio 7.1 L Glucose 177 H POC Glucose (mg/dL) 159 H 147 H Calcium 9.1 Phosphorus Magnesium 10/22/19 10/22/19 10/22/19 19:56 23:42 23:42 Sodium 135 Potassium 3.1 L Chloride 105 Carbon Dioxide 20 L Anion Gap 10 BUN 7 Creatinine 0.79 Est GFR ( Amer) 120.7 Est GFR (Non-Af Amer) 99.7 BUN/Creatinine Ratio 8.9 Glucose 179 H POC Glucose (mg/dL) 203 H 173 H Calcium 7.6 L Phosphorus 3.1 Magnesium 1.6 L 10/23/19 10/23/19 10/23/19 05:32 05:33 08:47 Sodium 137 Potassium 3.5 Chloride 103 Carbon Dioxide 23 Anion Gap 11 BUN 6 Creatinine 0.80 Est GFR ( Amer) 118.9 Est GFR (Non-Af Amer) 98.3 BUN/Creatinine Ratio 7.5 L Glucose 175 H POC Glucose (mg/dL) 170 H 213 H Calcium 8.3 L Phosphorus Magnesium 2.1 Studies: None today Nutrition: Consistent carb diet Impression: Ketosis has resolved Plan: Transfer out of ICU to service of Dr. Rosario
--- NOTE | 2019-10-23 11:46 | CONS ---
CC: Dr. Rudy De La Paz * CONSULTATION REPORT: DATE OF CONSULT: 10/23/19 REASON FOR CONSULT: Endocrine consultation for new onset diabetes mellitus. HISTORY OF PRESENT ILLNESS: Danny Molina is a 63-year-old male. His presentation is documented in Dr. Rudy De La Paz's admitting history and physical. In short, he has a history of coronary artery disease, but has not been taking any medication due to side effects. He had progressive lethargy over 1 to 2 weeks and frequent urination. He had an episode of syncope. He was brought to the hospital. His glucose was 410, anion gap 24, bicarbonate 20, he had a pH of 7.32, PCO2 40, lactate of 1.5, CRP of 44.2, creatinine of 1.38, BUN of 15. He had a sinus tachycardia on his EKG. Diabetes history: According to the patient, he has had 20-pound weight loss over the last few weeks though over the last 2 years, he has lost 50 pounds. He has had intense fatigue, thirst, excessive urination, blurred vision for approximately 2 weeks. PAST MEDICAL HISTORY: He denies a history of surgery or hospitalization though on close questioning, he has coronary artery disease and 3 years ago, had a myocardial infarction x3, coronary artery stents in [employer]. He states that he did not maintain his medication because it had side effects, for example; coughing. He was unable to name any of the medication he was placed on and he has not stayed on any aspirin. Hence, he was on no medications when he came into the hospital. Risk factor: No history of pancreatitis, steroid use. He does not smoke, has not drunk alcohol for several years. FAMILY HISTORY: Positive for both parents having type 2 diabetes. He had 7 sibs, at least 3 brothers have type 2 diabetes and 1 sister. He has not kept in touch with his family and does not know many more details. 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 REVIEW OF SYSTEMS: He has some numbness and tingling in his feet, which is new over the last two weeks. Otherwise no focal complaints. PHYSICAL EXAM: He is 6 foot, 274 pounds, body mass index 37.2, temperature 98.6 , pulse rate 96, respirations 30, oxygen saturation 95%, blood pressure 156/86. He has no cyanosis, anemia, jaundice, clubbing or lymphadenopathy. Cardiovascular System: His pulse is regular, normal character, volume. Venous pressure was not elevated. Heart sounds were normal. No added sounds, or murmurs. He has no pedal edema. Pedal pulses are present. Respiratory System: Chest expansion is full and symmetrical. Percussion note resonant. Breath sounds vesicular, no crackles or wheezes. Abdomen: No masses, tenderness or organomegaly. Endocrine System: He is clinically euthyroid, has no palpable thyroid tissue. He has central obesity, but no other signs of Austin syndrome. He has no signs of acromegaly. He has no xanthelasmata or tendon xanthomata. Eye Examination: He has no diabetic retinopathy. Foot Examination : He has very dry skin on his feet, which cracking. He has no infections or sores or ulcers. INVESTIGATIONS: At presentation CBC: White count 6.7, hemoglobin 14.1, hematocrit 43, platelets 194, normal differential. Chemistry at presentation: Abnormals, chloride 91, bicarbonate 20, BUN 15, creatinine 1.38, glucose 410, ALP 111, CRP 44.21, globulin 4.7. Labs today normal aside from the glucose of 175 and a calcium of 8.3. Urine at presentation 2+ ketones, 3+ glucose. Imaging: Chest x-ray at presentation no focal problems. EKG at presentation sinus tachycardia, rate 114, IL interval 142, QTc 456, QRS axis -13. Signs of an old inferior myocardial infarction, mild intraventricular conduction defect. ASSESSMENT AND PLAN: 1. New onset diabetes mellitus. This looks most like type 2 diabetes mellitus in view of the fact that he has a strong family history. He is obese. He did not have marked diabetic ketoacidosis even though there was anion gap. I will rule out out type 1 diabetes, Austin's syndrome and hemochromatosis. He has an A1c of 18% and hence he has had this for sometime. He is glucose toxic at the moment such that his pancreatic beta cells are unlikely to produce much enough insulin and hence he needs initial insulin therapy. I will also start him on metformin treatment right away. He will need a basal bolus regimen at first and I explained this to the patient. I will adjust this according to his body mass and the total amount of insulin he has been receiving thus far. He needs intensive diabetes education which will include having seen such by a joy operator and a registered dietitian. I explained that he will need basal and bolus insulin at least in the short term and may be in the prison, however, in the short term, he needs to have enough skills to be able to self- manage. He has had ethanol maintenance mechanic thus far of hypoglycemia. 2. Coronary artery disease. He is not taking any medications for this. He is high risk and hence we need to reinitiate management, however, once prioritize his diabetes management initially, he will be easily overwhelmed by too much information in addition given that he has not taken any of his cardiac medications after heart attack and stents. I am concerned that he may react against all medications if I start too many things at once. 3. Morbid obesity. He needs to lose weight. He will do this gradually over time and we will make sure that this is sustainable. We will also consider medications that will facilitate this. 4. Hypertension. He needs to be restarted on antihypertensives. He says he had coughing with a medication which sounds like an TRAV inhibitor. Again, we will reintroduce these medication slowly so that he can accept them. 5. Dyslipidemia. He states that he does not have dyslipidemia. I will check this in due course. 6. Complications of diabetes. He has likely had this diabetes for some time. I will check his urine for microalbumin. He will require an eye examination. 7. Numb feet with paresthesia. This is likely due to electrolyte imbalances. This does not precede his acute illness. I discussed with him this possibility though he is aware of the outcome of peripheral neuropathy prison if he does not control his diabetes. 8. He will require close follow up as an outpatient and I will see him while he is in the hospital and follow up in my office. [id number]/[facility] #: [id number] CHERYL
--- NOTE | 2019-10-23 12:19 | PN ---
Progress Note - Progress Note Date of Service: 10/23/19 Note: Patient with sinus tachycardia this AM - no complaints of chest pain or dyspnea - Heart rate has fluctuated from 110 to as high as 160 bpm. Currently at 98 bpm. Patient being transferred to telemetry for further monitoring. No signs of a pathological process at the present time.
[2019-10-23] MEDS: metFORMIN* 500 MG TAB PO SCH (18:25)
[2019-10-24] MEDS ORDERED: Phenazopyridine TAB* 100 MG PO PRN (01:42)
[2019-10-24] MEDS ORDERED: Acetaminophen TAB* 325 MG PO PRN (01:42)
[2019-10-24 02:19] LABS: Urine Appearance Turbid; Urine Bilirubin Negative (Negative); Urine Blood 1+ (Negative); Urine Color Amber; Urine Glucose 1+(50 mg/dL) (Negative); Urine Ketones Trace (Negative); Urine Nitrite Negative (Negative); Urine Protein 2+(100 mg/dL) (Negative); Urine Specific Gravity 1.024 (1.010-1.030); Urine Urobilinogen Negative (Negative)
[2019-10-24 02:23] LABS: Urine Bacteria Absent (Absent); Urine Red Blood Cell 3+(>10/hpf) (Absent); Urine White Blood Cell 3+(>20/hpf) (Absent)
[2019-10-24 07:28] LABS: Anion Gap 7 mmol/L (2-11); BUN/Creatinine Ratio 9.1 (8-20); Blood Urea Nitrogen 7 mg/dL (6-24); C Reactive Protein 55.75 mg/L (<8.01); CO2 Carbon Dioxide 27 mmol/L (22-32); Calcium 9.2 mg/dL (8.6-10.3); Chloride 102 mmol/L (101-111); Cholesterol 250 mg/dL; EGFR African American 124.3 (>60); EGFR Non-African American 102.7 (>60); Glucose 194 mg/dL (70-100); HDL Cholesterol 39.4 mg/dL; LDL Cholesterol 180 mg/dL; Potassium 3.7 mmol/L (3.5-5.0); Sodium 136 mmol/L (135-145); Triglycerides 155 mg/dL
[2019-10-24 07:31] LABS: % Iron Saturation 26 % (15-55); Iron 56 ug/dL (50-212); Total Iron Binding Capacity 216 mcg/dL (250-450); Transferrin 154 mg/dL (203-362)
[2019-10-24 07:50] LABS: Ferritin 404.9 ng/mL (24-336)
--- NOTE | 2019-10-24 08:37 | PN ---
Subjective - Subjective Reason for Note: Progress Note History: He has developed dysuria and has a positive urinalysis. Otherwise, he is feeling much less fatigued. He continues to have a tachycardia and feel tired on exertion. His glycemic control is improving. Active Problems: Active Problems New onset type 2 diabetes mellitus (Acute) E11.9 Paresthesia of both feet (Acute) R20.2 Sinus tachycardia (Acute) R00.0 Urinary tract infection (Acute) Essential hypertension (Chronic) I10 History of coronary artery stent placement (Chronic) Z95.5 History of myocardial infarction (Chronic) I25.2 Hypercholesterolemia (Chronic) E78.00 Obesity (BMI 35.0-39.9 without comorbidity) (Chronic) E66.9 Current Medications: Current Medications Acetaminophen (Tylenol Tab*) 650 mg PO Q4H PRN PRN Reason: PAIN - MILD Last Admin: 10/24/19 02:06 Dose: 650 mg Dextrose (Dextrose 50% Vial 50 Ml*) 25 ml IV PUSH .FOR FS < 60 - SS PRN PRN Reason: FS < 60 Heparin Sodium (Porcine) (Heparin Vial(*)) 5,000 units SUBCUT Q12HR [facility] Last Admin: 10/23/19 21:39 Dose: 5,000 units Insulin Glargine (Lantus(*)) 40 units SUBCUT Q24H [facility] Last Admin: 10/23/19 09:35 Dose: 40 unit Insulin Human Lispro (Humalog*) 0 units SUBCUT ACHS [facility]; Protocol Last Admin: 10/23/19 21:38 Dose: 6 unit Insulin Human Lispro (Humalog*) 0 units SUBCUT AC [facility]; Protocol Last Admin: 10/23/19 18:22 Dose: Not Given Magnesium Hydroxide (Milk Of Magnesia Liq*) 30 ml PO Q6H PRN PRN Reason: CONSTIPATION Last Admin: 10/23/19 13:52 Dose: 30 ml Metformin HCl (Glucophage*) 500 mg PO 0800,1700 [facility] Last Admin: 10/23/19 18:25 Dose: 500 mg Phenazopyridine HCl (Pyridium Tab*) 200 mg PO Q8H PRN PRN Reason: DYSURIA Last Admin: 10/24/19 02:05 Dose: 200 mg - Review of Systems Pulmonary: Positive: Cough Negative: Sputum, Hemoptysis, Wheezing, Respiratory Distress, Shortness of Breath Cardiology: Negative: Chest Pain, Palpitations, Swelling of Ankles Gastroenterology: Negative: Abdominal Pain, Nausea, Vomiting, Anorexia, Constipation, Diarrhea , Blood in Stools Genital - Urinary: Positive: Dysuria Home Medications: Home Medications Medication Instructions Recorded Confirmed Type Multivitamins/Minerals TAB* 1 tab PO DAILY 10/20/19 10/20/19 History [Theragran/minerals TAB*] Allergies: Allergies Allergy/AdvReac Type Severity Reaction Status Date / Time atenolol Allergy Bleeding Verified 10/20/19 08:59 Objective - Vital Signs Vital Signs: Vital Signs 10/23/19 10/23/19 10/23/19 09:00 10:00 11:00 Temperature Pulse Rate 114 131 113 Respiratory 12 20 22 Rate Blood Pressure 143/90 130/92 134/90 (mmHg) O2 Sat by Pulse 93 93 94 Oximetry 10/23/19 10/23/19 10/23/19 12:00 15:11 16:10 Temperature 98.7 F 98.0 F 97.9 F Pulse Rate 125 132 Respiratory 18 14 Rate Blood Pressure 137/86 147/96 (mmHg) O2 Sat by Pulse 96 98 Oximetry 10/23/19 10/23/19 10/23/19 19:29 20:00 23:08 Temperature 97.9 F 97.9 F Pulse Rate 104 113 Respiratory 16 16 16 Rate Blood Pressure 139/95 130/88 (mmHg) O2 Sat by Pulse 97 96 Oximetry 10/24/19 03:24 Temperature 97.3 F Pulse Rate 101 Respiratory 16 Rate Blood Pressure 127/85 (mmHg) O2 Sat by Pulse 95 Oximetry - Intake and Output Intake and Output: Intake & Output 10/21/19 10/22/19 10/23/19 10/24/19 11:59 11:59 11:59 11:59 Intake Total 2906 1839.3 3315 420 Output Total 2575 2400 3545 Balance 331 -560.7 -230 420 Weight 267 lb 3.2 oz 275 lb 9.245 oz 274 lb 9 oz 280 lb 4.8 oz Intake: IV Fluids 2003 1784 2916 D5W NS (0.9%) 1451 D5W NS 40 meq KCL 1004 378 NS 1000 1406 762 NS (0.9%) 20 meq KCL 703 IVPB 55 Magnesium 55 Medicated IV 12 55.3 44 INSULIN 12 55.3 44 Oral 890 300 420 Output: Urine 9175 1730 2355 Other: # Voids 2 ADLs: Meal Record Start: 10/20/19 11: 15 Freq: 09,13,18 Status: Active Protocol: Created 10/20/19 11:15 System (Rec: 10/20/19 11:15 System [id number]-CS01) Document 10/20/19 18:00 [id number] (Rec: 10/20/19 18:57 [id number] ICU-M33) Document 10/21/19 09:28 [id number] (Rec: 10/21/19 09:29 [id number] ICU-C15) Document 10/21/19 13:00 [id number] (Rec: 10/21/19 13:01 [id number] ICU-C15) Document 10/21/19 17:51 [id number] (Rec: 10/21/19 17:51 [id number] ICU-C15) Document 10/22/19 09:00 [id number] (Rec: 10/22/19 11:38 [id number] ICU-C06) Document 10/22/19 13:00 [id number] (Rec: 10/22/19 15:00 [id number] ICU-C06) Document 10/22/19 18:00 [id number] (Rec: 10/22/19 20:43 [id number] ICU-C16) Document 10/23/19 09:00 [id number] (Rec: 10/23/19 11:03 [id number] ICU-C16) Document 10/23/19 13:00 OVR1064 (Rec: 10/23/19 14:21 [id number] MED-M04) Document 10/23/19 18:00 [id number] (Rec: 10/23/19 18:22 [id number] MED-C11) Intake and Output Start: 10/20/19 08: 59 Freq: Status: Active Protocol: Created 10/20/19 08:59 System (Rec: 10/20/19 08:59 System ED-C24) Document 10/20/19 11:24 [id number] (Rec: 10/20/19 11:24 [id number] ED-C19) Intake and Output Start: 10/20/19 11: 15 Freq: 06,14,2200 Status: Active Protocol: Created 10/20/19 11:15 System (Rec: 10/20/19 11:15 System IMGED-CS01) Document 10/20/19 15:00 [id number] (Rec: 10/20/19 16:43 [id number] ICU-C15) Document 10/20/19 16:00 [id number] (Rec: 10/20/19 16:43 [id number] ICU-C15) Document 10/20/19 17:00 [id number] (Rec: 10/20/19 18:56 [id number] ICU-M33) Document 10/20/19 18:00 [id number] (Rec: 10/20/19 18:56 [id number] ICU-M33) Document 10/20/19 20:26 [id number] (Rec: 10/20/19 20:27 [id number] ICU-C15) Document 10/20/19 23:27 IZQ4764 (Rec: 10/20/19 23:28 FTY3025 ICU-C15) Document 10/21/19 03:00 [id number] (Rec: 10/21/19 04:17 [id number] ICU-C15) Document 10/21/19 07:00 EES1038 (Rec: 10/21/19 07:46 [id number] ICU-C15) Document 10/21/19 08:32 XFR1285 (Rec: 10/21/19 08:32 [id number] ICU-C15) Document 10/21/19 11:41 [id number] (Rec: 10/21/19 11:42 [id number] ICU-C12) Document 10/21/19 14:27 IVJ1092 (Rec: 10/21/19 14:27 [id number] ICU-C15) Document 10/21/19 19:00 [id number] (Rec: 10/21/19 19:48 ZJK1306 ICU-C16) Document 10/22/19 00:29 [id number] (Rec: 10/22/19 00:29 [id number] ICU-C16) Document 10/22/19 06:48 [id number] (Rec: 10/22/19 06:49 [id number] ICU-C16) Document 10/22/19 09:00 [id number] (Rec: 10/22/19 10:02 [id number] ICU-C10) Document 10/22/19 11:26 [id number] (Rec: 10/22/19 11:26 [id number] ICU-C10) Document 10/22/19 13:45 QTC4424 (Rec: 10/22/19 15:02 [id number] ICU-C06) Document 10/22/19 15:08 IBV1827 (Rec: 10/22/19 15:08 [id number] ICU-M35) Document 10/22/19 22:11 [id number] (Rec: 10/22/19 22:11 [id number] ICU-C16) Document 10/23/19 00:00 [id number] (Rec: 10/23/19 00:47 [id number] ICU-C16) Document 10/23/19 00:47 [id number] (Rec: 10/23/19 00:47 [id number] ICU-C16) Document 10/23/19 04:00 EYS1956 (Rec: 10/23/19 05:34 [id number] ICU-C16) Document 10/23/19 05:34 [id number] (Rec: 10/23/19 05:34 [id number] ICU-C16) Document 10/23/19 09:00 [id number] (Rec: 10/23/19 11:03 [id number] ICU-C16) Document 10/23/19 13:00 [id number] (Rec: 10/23/19 14:20 CCK1725 MED-M04) Document 10/23/19 22:00 [id number] (Rec: 10/23/19 22:48 [id number] MED-C11) Document 10/24/19 05:04 [id number] (Rec: 10/24/19 05:15 [id number] MED-C11) - Physical Exam General Physical Exam Comment: Warm and well perfused, in no acute distress. He is well hydrated. General: No Cyanosis, No Anemia, No Jaundice, No Clubbing Endocrine: Yes Central Obesity, No Acromegaly, No Vitiligo, No Flushing, No Acanthosis nigricans, No Violaceious striae, No Abingdon Syndrome, No Buccal pigmenatation, No Vcik Crease Pigmentation Lungs and Chest: Yes: Chest Expansion Full, Chest Expansion Symetrica, Percussion Note Resonant, Vessicular Breath Sounds. No: Crackles, Wheezes, Respiratory Distress, Use of Accessory Muscles Heart Rate and Rhythm: Tachycardia Additional Cardiovascular: Yes: Normal Heart Sounds. No: Heart Murmur, Pedal Edema Abdominal Exam: Yes: Soft, Bowel Sounds Present. No: Distention, Abdominal Mass , Hepatomegaly, Abdominal Tenderness, Guarding, Rebound Tenderness - Neuro Orientation: A/O x3 Psychiatric: Normal Speech: Normal Results - Results Lab Results: Laboratory Results - last 24 hr 10/23/19 10/23/19 10/23/19 05:32 08:47 12:03 Sodium 137 Potassium 3.5 Chloride 103 Carbon Dioxide 23 Anion Gap 11 BUN 6 Creatinine 0.80 Est GFR ( Amer) 118.9 Est GFR (Non-Af Amer) 98.3 BUN/Creatinine Ratio 7.5 L Glucose 175 H POC Glucose (mg/dL) 213 H 208 H Calcium 8.3 L Magnesium 2.1 Iron TIBC % Saturation Unsat Iron Binding Transferrin Ferritin C-Reactive Protein Triglycerides Cholesterol LDL Cholesterol HDL Cholesterol TSH Cancelled Cortisol Urine Color Urine Appearance Urine pH Ur Specific [place] Urine Protein Urine Ketones Urine Blood Urine Nitrate Urine Bilirubin Urine Urobilinogen Ur Leukocyte Esterase Urine WBC (Auto) Urine RBC (Auto) Urine Bacteria Urine Glucose 10/23/19 10/23/19 10/24/19 17:09 20:58 01:13 Sodium Potassium Chloride Carbon Dioxide Anion Gap BUN Creatinine Est GFR ( Amer) Est GFR (Non-Af Amer) BUN/Creatinine Ratio Glucose POC Glucose (mg/dL) 174 H 229 H 181 H Calcium Magnesium Iron TIBC % Saturation Unsat Iron Binding Transferrin Ferritin C-Reactive Protein Triglycerides Cholesterol LDL Cholesterol HDL Cholesterol TSH Cortisol Urine Color Urine Appearance Urine pH Ur Specific [place] Urine Protein Urine Ketones Urine Blood Urine Nitrate Urine Bilirubin Urine Urobilinogen Ur Leukocyte Esterase Urine WBC (Auto) Urine RBC (Auto) Urine Bacteria Urine Glucose 10/24/19 10/24/19 10/24/19 02:00 06:40 06:40 Sodium 136 Potassium 3.7 Chloride 102 Carbon Dioxide 27 Anion Gap 7 BUN 7 Creatinine 0.77 Est GFR ( Amer) 124.3 Est GFR (Non-Af Amer) 102.7 BUN/Creatinine Ratio 9.1 Glucose 194 H POC Glucose (mg/dL) Calcium 9.2 Magnesium Iron 56 TIBC 216 L % Saturation 26 Unsat Iron Binding < 201 Transferrin 154 L Ferritin 404.9 H C-Reactive Protein 55.75 H Triglycerides 155 Cholesterol 250 LDL Cholesterol 180 HDL Cholesterol 39.4 TSH 1.50 Cortisol 4.83 Urine Color Jamia Urine Appearance Turbid Urine pH 7.0 Ur Specific [place] 1.024 Urine Protein 2+(100 mg/dl) A Urine Ketones Trace A Urine Blood 1+ A Urine Nitrate Negative Urine Bilirubin Negative Urine Urobilinogen Negative Ur Leukocyte Esterase 3+ A Urine WBC (Auto) 3+(>20/hpf) A Urine RBC (Auto) 3+(>10/hpf) A Urine Bacteria Absent Urine Glucose 1+(50 mg/dl) A 10/24/19 07:47 Sodium Potassium Chloride Carbon Dioxide Anion Gap BUN Creatinine Est GFR ( Amer) Est GFR (Non-Af Amer) BUN/Creatinine Ratio Glucose POC Glucose (mg/dL) 191 H Calcium Magnesium Iron TIBC % Saturation Unsat Iron Binding Transferrin Ferritin C-Reactive Protein Triglycerides Cholesterol LDL Cholesterol HDL Cholesterol TSH Cortisol Urine Color Urine Appearance Urine pH Ur Specific [place] Urine Protein Urine Ketones Urine Blood Urine Nitrate Urine Bilirubin Urine Urobilinogen Ur Leukocyte Esterase Urine WBC (Auto) Urine RBC (Auto) Urine Bacteria Urine Glucose Assessment - Problem List Assessment: Patient Problems New onset type 2 diabetes mellitus (Acute) Paresthesia of both feet (Acute) Sinus tachycardia (Acute) Urinary tract infection (Acute) Essential hypertension (Chronic) History of coronary artery stent placement (Chronic) History of myocardial infarction (Chronic) Hypercholesterolemia (Chronic) Obesity (BMI 35.0-39.9 without comorbidity) (Chronic) Plan: New onset type 2 diabetes mellitus (Acute) We have ruled out Bobby syndrome. His ferritin is elevated - this may be an acute phase response - I will repeat this to rule out hemochromatosis in a few weeks. He is responding well to insulin therapy. He has had some diabetes education and has been reading and thinking about his diet. I provided him with further education: * Pathophysiology T2D * Basal/bolus insulin therapy * Hypoglycemia - symptoms and treatment (measure glucose, rule) * Importance of exercise - walking 30 mins per day (he is deconditioned) * Discussion about a consistent carb diet. Information about avoiding concentrated carbohydrates. Portion control of carbohydrates in diet * Insulin pens and self-monitoring of blood glucose * I will obtain a monitor and insulin pens from the hospital pharmacy for education He is engaged and asks good questions. Paresthesia of both feet (Acute) Improved Sinus tachycardia (Acute) He has this at baseline and it goes up to 140 on minor exertion. This may be a vestige of his volume contracted state and may autoregulate. However, I am going to start him on a beta mari as an outpatient. Given a previous bad response to atenolol, I want to do this when he is not starting many other medications Urinary tract infection (Acute) I will prescribe bactrim DS Essential hypertension (Chronic) His BP is on target. History of coronary artery stent placement (Chronic) I am starting him on aspirin 81 mg qdaily History of myocardial infarction (Chronic) I am going to restart aspirin, statin right now. In due course to start an ARB and a beta mari. I will refer him to cardiology as an outpatient Hypercholesterolemia (Chronic) I am starting him on atorvastatin 40 mg qhs Obesity (BMI 35.0-39.9 without comorbidity) (Chronic) He has a weight loss goal of 14 lbs in 7 months (5% body mass). I discussed the above with the patient and his significant other Tawny Centeno.
[2019-10-24] MEDS: Sulfamethox/Trimethoprim DS 800/160* TAB PO SCH ×2 (09:45→21:54)
[2019-10-24] MEDS: Insulin LISPRO* 1 UNITS UNIT SUBCUT SCH ×7 (09:45→21:54)
[2019-10-24] MEDS: Insulin GLARGINE(*) 1 UNITS UNIT SUBCUT SCH (09:45)
[2019-10-24] MEDS: Aspirin 81 mg CHEW TAB* 81 MG TAB.CHEW PO SCH (09:45)
[2019-10-24] MEDS: metFORMIN* 500 MG TAB PO SCH ×2 (09:45→18:20)
[2019-10-24] MEDS: Heparin VIAL(*) 5000 UNITS/ML VIAL (FIVE THOUSAND) SUBCUT SCH ×2 (09:46→21:53)
[2019-10-24] MEDS ORDERED: Atorvastatin* 40 MG TAB PO SCH (21:00)
[2019-10-25 07:51] VITALS: BP 129/82
[2019-10-25 08:35] LABS: Calcium 9.4 mg/dL (8.6-10.3); EGFR African American 112.4 (>60); EGFR Non-African American 92.9 (>60)
[2019-10-25] MEDS: Insulin LISPRO* 1 UNITS UNIT SUBCUT SCH ×2 (09:09→09:11)
[2019-10-25] MEDS: Insulin GLARGINE(*) 1 UNITS UNIT SUBCUT SCH (09:11)
[2019-10-25] MEDS: Sulfamethox/Trimethoprim DS 800/160* TAB PO SCH (09:12)
[2019-10-25] MEDS: Aspirin 81 mg CHEW TAB* 81 MG TAB.CHEW PO SCH (09:12)
[2019-10-25] MEDS: Heparin VIAL(*) 5000 UNITS/ML VIAL (FIVE THOUSAND) SUBCUT SCH (09:12)
[2019-10-25] MEDS: metFORMIN* 500 MG TAB PO SCH (09:12)
--- NOTE | 2019-10-25 10:19 | PN ---
Subjective - Subjective Reason for Note: Discharge Note History: He is better and ready for discharge - see discharge summary Active Problems: Active Problems New onset type 2 diabetes mellitus (Acute) E11.9 Paresthesia of both feet (Acute) R20.2 Sinus tachycardia (Acute) R00.0 Urinary tract infection (Acute) Essential hypertension (Chronic) I10 History of coronary artery stent placement (Chronic) Z95.5 History of myocardial infarction (Chronic) I25.2 Hypercholesterolemia (Chronic) E78.00 Obesity (BMI 35.0-39.9 without comorbidity) (Chronic) E66.9 Current Medications: Current Medications Acetaminophen (Tylenol Tab*) 650 mg PO Q4H PRN PRN Reason: PAIN - MILD Last Admin: 10/24/19 02:06 Dose: 650 mg Aspirin (Aspirin 81 Mg Chew Tab*) 81 mg PO DAILY [facility] Last Admin: 10/25/19 09:12 Dose: 81 mg Atorvastatin Calcium (Lipitor*) 40 mg PO 2100 [facility] Last Admin: 10/24/19 21:53 Dose: 40 mg Dextrose (Dextrose 50% Vial 50 Ml*) 25 ml IV PUSH .FOR FS < 60 - SS PRN PRN Reason: FS < 60 Heparin Sodium (Porcine) (Heparin Vial(*)) 5,000 units SUBCUT Q12HR [facility] Last Admin: 10/25/19 09:12 Dose: 5,000 units Insulin Glargine (Lantus(*)) 40 units SUBCUT Q24H [facility] Last Admin: 10/25/19 09:11 Dose: 40 unit Insulin Human Lispro (Humalog*) 0 units SUBCUT ACHS [facility]; Protocol Last Admin: 10/25/19 09:09 Dose: 2 unit Insulin Human Lispro (Humalog*) 0 units SUBCUT AC [facility]; Protocol Last Admin: 10/25/19 09:11 Dose: 3 unit Magnesium Hydroxide (Milk Of Magnesia Liq*) 30 ml PO Q6H PRN PRN Reason: CONSTIPATION Last Admin: 10/23/19 13:52 Dose: 30 ml Metformin HCl (Glucophage*) 500 mg PO 0800,1700 [facility] Last Admin: 10/25/19 09:12 Dose: 500 mg Phenazopyridine HCl (Pyridium Tab*) 200 mg PO Q8H PRN PRN Reason: DYSURIA Last Admin: 10/24/19 02:05 Dose: 200 mg Trimethoprim/Sulfamethoxazole (Bactrim Ds 800/160 Tab*) 1 tab PO BID [facility] Last Admin: 10/25/19 09:12 Dose: 1 tab Home Medications: Home Medications Medication Instructions Recorded Confirmed Type Multivitamins/Minerals TAB* 1 tab PO DAILY 10/20/19 10/20/19 History [Theragran/minerals TAB*] Allergies: Allergies Allergy/AdvReac Type Severity Reaction Status Date / Time atenolol Allergy Bleeding Verified 10/20/19 08:59 Objective - Vital Signs Vital Signs: Vital Signs 10/24/19 10/24/19 10/24/19 11:48 15:12 20:00 Temperature 97.4 F 98.1 F Pulse Rate 104 101 Respiratory 22 19 20 Rate Blood Pressure 143/88 134/80 (mmHg) O2 Sat by Pulse 94 96 Oximetry 10/24/19 10/25/19 10/25/19 20:51 00:22 03:58 Temperature 97.8 F 98.3 F 98.7 F Pulse Rate 103 100 107 Respiratory 20 22 24 Rate Blood Pressure 129/88 129/90 106/64 (mmHg) O2 Sat by Pulse 98 96 98 Oximetry 10/25/19 07:15 Temperature 98.3 F Pulse Rate 97 Respiratory 22 Rate Blood Pressure 129/82 (mmHg) O2 Sat by Pulse 99 Oximetry - Intake and Output Intake and Output: Intake & Output 10/22/19 10/23/19 10/24/19 10/25/19 11:59 11:59 11:59 11:59 Intake Total 1839.3 3315 660 1560 Output Total 2400 3545 0 Balance -560.7 -024 157 6959 Weight 275 lb 9.245 oz 274 lb 9 oz 280 lb 4.8 oz 280 lb 4.8 oz Intake: IV Fluids 1784 2916 D5W NS (0.9%) 1451 D5W NS 40 meq KCL 378 NS 1406 762 NS (0.9%) 20 meq KCL 703 IVPB 55 Magnesium 55 Medicated IV 55.3 44 INSULIN 55.3 44 Oral 563 099 3240 Output: Urine 2400 3545 0 Other: Date of Last Bowel 10/23/19 Movement # Bowel Movements 0 # Voids 2 0 ADLs: Meal Record Start: 10/20/19 11: 15 Freq: ,, Status: Active Protocol: Created 10/20/19 11:15 System (Rec: 10/20/19 11:15 System [id number]-CS01) Document 10/20/19 18:00 [id number] (Rec: 10/20/19 18:57 [id number] ICU-M33) Document 10/21/19 09:28 [id number] (Rec: 10/21/19 09:29 [id number] ICU-C15) Document 10/21/19 13:00 [id number] (Rec: 10/21/19 13:01 [id number] ICU-C15) Document 10/21/19 17:51 [id number] (Rec: 10/21/19 17:51 [id number] ICU-C15) Document 10/22/19 09:00 [id number] (Rec: 10/22/19 11:38 [id number] ICU-C06) Document 10/22/19 13:00 [id number] (Rec: 10/22/19 15:00 [id number] ICU-C06) Document 10/22/19 18:00 [id number] (Rec: 10/22/19 20:43 [id number] ICU-C16) Document 10/23/19 09:00 [id number] (Rec: 10/23/19 11:03 [id number] ICU-C16) Document 10/23/19 13:00 [id number] (Rec: 10/23/19 14:21 [id number] MED-M04) Document 10/23/19 18:00 [id number] (Rec: 10/23/19 18:22 [id number] MED-C11) Document 10/24/19 09:00 [id number] (Rec: 10/24/19 10:29 [id number] MED-C11) Document 10/24/19 13:00 [id number] (Rec: 10/24/19 13:24 [id number] MED-C11) Document 10/24/19 18:00 [id number] (Rec: 10/24/19 18:51 [id number] MED-C11) Document 10/25/19 09:00 [id number] (Rec: 10/25/19 09:03 [id number] MED-C11) Intake and Output Start: 10/20/19 08: 59 Freq: Status: Active Protocol: Created 10/20/19 08:59 System (Rec: 10/20/19 08:59 System ED-C24) Document 10/20/19 11:24 [id number] (Rec: 10/20/19 11:24 [id number] ED-C19) Intake and Output Start: 10/20/19 11: 15 Freq: ,,0 Status: Active Protocol: Created 10/20/19 11:15 System (Rec: 10/20/19 11:15 System IMGED-CS01) Document 10/20/19 15:00 [id number] (Rec: 10/20/19 16:43 [id number] ICU-C15) Document 10/20/19 16:00 [id number] (Rec: 10/20/19 16:43 [id number] ICU-C15) Document 10/20/19 17:00 BDH6858 (Rec: 10/20/19 18:56 [id number] ICU-M33) Document 10/20/19 18:00 [id number] (Rec: 10/20/19 18:56 NHK7552 ICU-M33) Document 10/20/19 20:26 [id number] (Rec: 10/20/19 20:27 LHP4586 ICU-C15) Document 10/20/19 23:27 RBI5217 (Rec: 10/20/19 23:28 [id number] ICU-C15) Document 10/21/19 03:00 [id number] (Rec: 10/21/19 04:17 [id number] ICU-C15) Document 10/21/19 07:00 [id number] (Rec: 10/21/19 07:46 [id number] ICU-C15) Document 10/21/19 08:32 [id number] (Rec: 10/21/19 08:32 TZN7623 ICU-C15) Document 10/21/19 11:41 HFK9097 (Rec: 10/21/19 11:42 [id number] ICU-C12) Document 10/21/19 14:27 [id number] (Rec: 10/21/19 14:27 [id number] ICU-C15) Document 10/21/19 19:00 ZUY1160 (Rec: 10/21/19 19:48 XIP6226 ICU-C16) Document 10/22/19 00:29 [id number] (Rec: 10/22/19 00:29 [id number] ICU-C16) Document 10/22/19 06:48 [id number] (Rec: 10/22/19 06:49 [id number] ICU-C16) Document 10/22/19 09:00 MTT1638 (Rec: 10/22/19 10:02 [id number] ICU-C10) Document 10/22/19 11:26 MVP7725 (Rec: 10/22/19 11:26 OIQ6815 ICU-C10) Document 10/22/19 13:45 [id number] (Rec: 10/22/19 15:02 [id number] ICU-C06) Document 10/22/19 15:08 NPS5632 (Rec: 10/22/19 15:08 [id number] ICU-M35) Document 10/22/19 22:11 BTP1990 (Rec: 10/22/19 22:11 [id number] ICU-C16) Document 10/23/19 00:00 QPQ0314 (Rec: 10/23/19 00:47 UNJ1002 ICU-C16) Document 10/23/19 00:47 WJG1617 (Rec: 10/23/19 00:47 [id number] ICU-C16) Document 10/23/19 04:00 [id number] (Rec: 10/23/19 05:34 [id number] ICU-C16) Document 10/23/19 05:34 [id number] (Rec: 10/23/19 05:34 [id number] ICU-C16) Document 10/23/19 09:00 TZT5183 (Rec: 10/23/19 11:03 [id number] ICU-C16) Document 10/23/19 13:00 PKI7150 (Rec: 10/23/19 14:20 WAF0965 MED-M04) Document 10/23/19 22:00 ZCR4485 (Rec: 10/23/19 22:48 [id number] MED-C11) Document 10/24/19 05:04 [id number] (Rec: 10/24/19 05:15 RIY7626 MED-C11) Document 10/24/19 13:31 [id number] (Rec: 10/24/19 13:32 UIT8939 MED-C11) Document 10/24/19 21:26 [id number] (Rec: 10/24/19 21:26 [id number] MEDL-C01) Document 10/25/19 06:00 [id number] (Rec: 10/25/19 07:22 [id number] MEDL-C02) - Physical Exam General: No Cyanosis, No Anemia, No Jaundice, No Clubbing Lungs and Chest: Yes: Chest Expansion Full, Chest Expansion Symetrica, Percussion Note Resonant, Vessicular Breath Sounds. No: Crackles, Wheezes Heart Rate and Rhythm: Regular Additional Cardiovascular: Yes: Normal Heart Sounds. No: Heart Murmur, Pedal Edema Abdominal Exam: Yes: Soft, Bowel Sounds Present. No: Distention, Abdominal Tenderness Results - Results Lab Results: Laboratory Results - last 24 hr 10/24/19 10/24/19 10/24/19 12:23 17:17 20:58 Sodium Potassium Chloride Carbon Dioxide Anion Gap BUN Creatinine Est GFR ( Amer) Est GFR (Non-Af Amer) BUN/Creatinine Ratio Glucose POC Glucose (mg/dL) 236 H 176 H 159 H Calcium 10/25/19 10/25/19 07:49 08:09 Sodium 135 Potassium 4.0 Chloride 99 L Carbon Dioxide 28 Anion Gap 8 BUN 5 L Creatinine 0.84 Est GFR ( Amer) 112.4 Est GFR (Non-Af Amer) 92.9 BUN/Creatinine Ratio 6.0 L Glucose 181 H POC Glucose (mg/dL) 132 H Calcium 9.4 Assessment - Problem List Assessment: Patient Problems New onset type 2 diabetes mellitus (Acute) Paresthesia of both feet (Acute) Sinus tachycardia (Acute) Urinary tract infection (Acute) Essential hypertension (Chronic) History of coronary artery stent placement (Chronic) History of myocardial infarction (Chronic) Hypercholesterolemia (Chronic) Obesity (BMI 35.0-39.9 without comorbidity) (Chronic) Plan: He is recovered and adjusting well to monitoring and self-injection. I will discharge him home. Condition improved disposition home
--- NOTE | 2019-10-25 13:29 | DS ---
DISCHARGE SUMMARY: DATE OF ADMISSION: 10/20/19 DATE OF DISCHARGE: 10/25/19 DISCHARGE DIAGNOSES: 1. New onset type 2 diabetes with hyperglycemia and mild acidosis. 2. Urinary tract infection. COMORBIDITIES: Paresthesia, both feet; electrolyte abnormalities; diabetes education and initiation of insulin therapy. SECONDARY DIAGNOSES: 1. Obesity. 2. Hypercholesterolemia. 3. History of myocardial infarction. 4. History of coronary artery stent placement. 5. Noncompliance. CONDITION AT DISCHARGE: Fair. DISPOSITION: Home. HISTORY: Danny Molina is a 63-year-old male. His presentation is documented in Dr. Rudy De La Paz's admitting history and physical. In short, he has had a history of 2 weeks of lethargy, polyuria, mary ydipsia, altered vision. He presented to the emergency room with glucose of 410, an anion gap of 24, a bicarbonate of 20. His EKG showed no signs of ischemia. PHYSICAL EXAMINATION: Temperature 97.2, heart rate 102, respirations 18, oxygen saturation 98% on ro om air, blood pressure 146/105. No focal findings. DIAGNOSTIC STUDIES/LAB DATA: Initial chemistry: Sodium 135, bicarbonate 20, anion gap 24, BUN 15, c reatinine 1.38, glucose 410. CRP 44.2. Lactate 1.5. EKG: Sinus tachycardia with no acute ST or T- wave changes. INITIAL IMPRESSION: New onset diabetes with hyperglycemia, probable ketosis. He was managed initially on the ICU with IV insulin infusion, IV hydration, and electrolyte replaceme nt. CONSULTATIONS: I saw him in consultation on 10/23/19 and assumed position as his attending physician and primary care physician as he did not have a primary care physician. Given that he had a strong family history, I felt that this was most likely type 2 diabetes. He did not have marked diabetic ke toacidosis. I started him on a basal bolus regimen with Lantus insulin 40 units and lispro insulin b y carbohydrate counting. I initiated intensive diabetes education, took account of his coronary palak ry disease, dyslipidemia, and his hypertension. INVESTIGATIONS: His electrolytes were normalized. His glucose came under control. TSH was normal at 1.5. Cortisol was not elevated at 4.83, ruling out [place] syndrome. C-reactive protein was 44. H is ferritin was elevated likely as an acute phase reaction of 405, this will be followed up as an out patient to ensure he does not have hemochromatosis causing his diabetes. Pending C-peptide and GAD65 antibodies. His hemoglobin A1C was 18%. Urinalysis at presentation, 2+ ketones, 3+ glucose; on , 2+ protein, 1+ blood, 3+ leukocyte esterase. Urine culture was negative. IMAGING: Chest x-ray showed no acute disease. HOSPITAL COURSE: His initial stay in the ICU was under the management of Dr. Rudy De La Paz, who correc claire his hyperglycemia and his electrolyte abnormalities. I assumed care and placed him on the basal bolus regimen, initiated metformin therapy, started him on a statin and an aspirin for his coronary a rtery disease. I avoided starting him on an TRAV inhibitor and a beta-mari as he had problems with drugs like this in the past, and given his history of noncompliance, I felt that it was quintero to wait until he was an outpatient and stable before initiating this therapy. He was a quick student, learn t the basics about management of type 2 diabetes mellitus by insulin therapy. I explained to him nataliya t he is glucose toxic and that in due course, we may be able to wean him off insulin and place him on oral agents or GLP-1 agonist. On the day of discharge, he is feeling much better, he is no longer feeling short of breath when he w alks around or lightheaded. He has no polyuria, polydipsia. His dysuria from the urinary tract infec tion he developed during the hospitalization has gone with Bactrim. He feels ready to go home. PHYSICAL EXAMINATION ON THE DAY OF DISCHARGE: Temperature 98.3, heart rate 93, respirations 22, oxyg en saturation 99% on room air, blood pressure 129/82. No cyanosis, anemia, jaundice, clubbing, or ly mphadenopathy. Warm and well perfused. Well hydrated. Cardiovascular System: Pulse regular, normal in character and volume. Venous pressure not elevated. [place] beat not displaced. Heart sounds norm al, no added sounds. No murmurs. No pedal edema. Respiratory system: Chest expansion full and sym metrical. Percussion note resonant. Breath sounds vesicular. No crackles or wheezes. Abdominal ex amination: No masses, tenderness, or organomegaly. ASSESSMENT AND PLAN: 1. New onset type 2 diabetes mellitus. I have placed him on a basal bolus insulin regimen. He has learnt self-monitoring. He has also learnt how to use insulin pen devices. He has received educatio n from Yanira Tipton, RN, CDE. He has a transition of care visit already organized at my office. He is joining my medical practice as a primary care patient and also as a diabetes patient. I have discuss ed hypoglycemia and told him about the 15-15 rule. There are still some pending results for his C-pe ptide and BEBETO antibodies. 2. Obesity. He has got initial target of losing 10 pounds in 5 months, which is 5% of his body weig ht. 3. Essential hypertension. I will start to treat this as an outpatient. 4. Hypercholesterolemia. He is already started on atorvastatin. 5. History of coronary artery disease and prior coronary artery stents. He will need as an outpatie nt to start a beta-mari and an ARB as he has had a cough with medications in the past, which proba roly are TRAV inhibitors. I will also need to have him see a risk compliance manager for ongoing care. He does n ot appear to have had any problems during the hospitalization aside from the tachycardia. 6. Poor compliance. He is at this time sounding like he has had transformation in this area and is likely to be very attentive to his future management. DISCHARGE MEDICATIONS: 1. Lovastatin 40 mg q.h.s. 2. Aspirin 81 mg daily. 3. Metformin 1000 mg twice daily. 4. Insulin glargine 40 units subcutaneously every 24 hours. 5. Lispro insulin by carbohydrate counting; small meals, 4 units; medium meals, 6 units; large meals , 8 units; plus 2 units for every 50 mg/dL above 150 mg/dL. 6. Multivitamin 1 a day. He will follow up for transition of care visit at my office. [id number]/[facility] #: [id number]
== END 2019-10-25 12:45 | disposition home or self-care (01) | DRG 638 ==
LOC: ED 08:47 → ICU 10:48 → MED 10-23 12:40
PROVIDERS: ADMIT Internal Medicine Critical Care Medicine; ATTEND Internal Medicine
DX: E11.10 Type 2 diabetes mellitus with ketoacidosis without coma (principal); N39.0 Urinary tract infection, site not specified; I25.10 Atherosclerotic heart disease of native coronary artery without angina pectoris; R00.0 Tachycardia, unspecified; E66.01 Morbid (severe) obesity due to excess calories; I10 Essential (primary) hypertension; E78.5 Hyperlipidemia, unspecified; R20.2 Paresthesia of skin; E78.00 Pure hypercholesterolemia, unspecified; Z88.8 Allergy status to other drugs, medicaments and biological substances; Z91.19 Patient's noncompliance with other medical treatment and regimen; I25.2 Old myocardial infarction; Z95.5 Presence of coronary angioplasty implant and graft; Z68.38 Body mass index [BMI] 38.0-38.9, adult
CPT/HCPCS: 36415; 71045; 80048; 80053; 80061; 81003; 81015; 82533; 82550; 82728; 82803; 83036; 83540; 83550; 83605; 83735; 84100; 84443; 84484; 84681; 85025; 85027; 85610; 86140; 86341; 87040; 87086; 87641; 93005; 99285; A9270-GY; J1644; J1815; J3475